=== PATIENT | female | born 1945 | race Caucasian/White ===

== ENCOUNTER 2017-02-11 12:13 | Outpatient (CLI) | payer MEDICARE, OTHER | END 2017-02-11 12:14 | disposition home or self-care (01) | DX: Z12.31 Encounter for screening mammogram for malignant neoplasm of breast (principal) ==

== ENCOUNTER 2018-03-13 16:16 | Outpatient (CLI) | payer MEDICARE, OTHER ==
--- NOTE | 2018-03-14 20:41 | Mammography Report ---
SCREENING MAMMOGRAM: 03/14/2018 CLINICAL INDICATION: A 72-year-old with history of benign biopsy for screening. COMPARISON: 01/2017, 01/2016, 12/2014, 12/2013, 12/2012, 11/2011, 11/2010. FINDINGS: The breasts again demonstrate heterogeneously dense fibroglandular parenchyma bilaterally. Postbiopsy changes in the inner right breast are stable. Coarse and punctate, typically benign calcifications are present, no suspicious masses, clustered microcalcifications, or regions of architectural distortion are identified. IMPRESSION: BENIGN FINDINGS. RECOMMENDATION: Routine annual screening unless otherwise clinically indicated. BIRADS CATEGORY - 2 BENIGN FINDINGS. STANDARD QUALIFYING STATEMENTS: 1. This examination was reviewed with the aid of Computer-Aided Detection (CAD). 2. A negative or benign imaging report should not delay biopsy if clinically suspicious findings are present. Consider surgical consultation if warranted. More than 5% of cancers are not identified by imaging. 3. Dense breasts may obscure an underlying neoplasm. TD: 03/14/2018 20:41
== END 2018-03-13 16:17 | disposition home or self-care (01) ==
LOC: DI 16:16
PROVIDERS: ATTEND Internal Medicine
DX: Z12.31 Encounter for screening mammogram for malignant neoplasm of breast (principal)
CPT/HCPCS: 77067

== ENCOUNTER 2019-04-28 13:20 | Outpatient (CLI) | payer MEDICARE, OTHER ==
--- NOTE | 2019-04-29 08:14 | Mammography Report ---
Reason: SCREENING MAMMO Procedure Date: 04/28/2019 Accession Number: [id number] / [id number] Procedure: TOMASZ - Screening Mammo w/Thomas CPT Code: FULL RESULT: EXAM: Screening Mammo w/Thomas DATE: 04/28/2019 2:05 PM CLINICAL HISTORY: Screening encounter. History of right breast excisional biopsy in 1977 with benign pathology. TECHNIQUE: (B) - Bilateral CC and MLO views were obtained. A right laterally exaggerated CC views obtained COMPARISON: 03/13/2018 through 01/15/2015. PARENCHYMAL PATTERN: (D) - The breast(s) demonstrate(s) heterogeneously dense fibroglandular parenchyma. FINDINGS: Postsurgical appearance of the right breast is stable. There are no suspicious masses, calcifications, or areas of distortion. IMPRESSION: Benign findings. BI-RADS category 2. RECOMMENDATION: (ANNUAL) - Recommend routine annual screening mammography. BI-RADS CATEGORY: (2) - Benign Findings. STANDARD QUALIFYING STATEMENTS: 1. This examination was not reviewed with the aid of Computer-Aided Detection (CAD). 2. A negative or benign imaging report should not preclude biopsy if clinically suspicious findings are present. 3. Dense breasts may obscure an underlying neoplasm. 4. This examination was reviewed with the aid of 3D breast imaging (tomosynthesis).
== END 2019-04-28 13:21 | disposition home or self-care (01) ==
LOC: DI 13:20
PROVIDERS: ATTEND Internal Medicine
DX: Z12.31 Encounter for screening mammogram for malignant neoplasm of breast (principal)
CPT/HCPCS: 77063; 77067

== ENCOUNTER 2021-07-19 10:21 | Outpatient (CLI) | payer MEDICARE, OTHER ==
--- NOTE | 2021-07-19 14:33 | XRAY Report ---
PROCEDURE: Hip w/Pelvis 2-3V LT INDICATIONS: LEFT HIP PAIN TECHNIQUE: AP pelvis with lateral view(s) of the bilateral hip(s). COMPARISON: None. FINDINGS: Bones: There are degenerative changes of the left hip joint and symphysis pubis.. No fractures or dis locations. Pelvic ring appears intact. No suspicious bony lesions. Soft tissues: The visualized bowel gas pattern is normal. No suspicious soft tissue calcifications. IMPRESSION: Degenerative changes of the left hip. No acute abnormality. Reviewed by: Max Thomas on 07/19/2021 2:31 PM PDT Approved by: Max Thomas on 07/19/2021 2:31 PM PDT Station ID: [id number]
== END 2021-07-19 10:22 | disposition home or self-care (01) ==
LOC: DI 10:21
PROVIDERS: ATTEND Internal Medicine
DX: M16.12 Unilateral primary osteoarthritis, left hip (principal)

== ENCOUNTER 2021-09-07 11:45 | Outpatient (CLI) | payer MEDICARE, OTHER ==
[2021-09-07] MEDS ORDERED: IOVERSOL 320 50 ML VIAL ONE (12:13)
[2021-09-07] MEDS ORDERED: IOVERSOL 320 100 ML VIAL IVP ONE ×2 (12:14→13:38)
[2021-09-07] MEDS ORDERED: IOVERSOL 320 50 ML VIAL PO ONE (13:38)
--- NOTE | 2021-09-07 22:47 | CT Report ---
PROCEDURE: Abdomen/Pelvis W INDICATIONS: LEFT PELVIC PAIN CONTRAST: IV CONTRAST: Optiray 320 ml: 100 PO CONTRAST: Optiray 320 ml50 TECHNIQUE: After the administration of IV and oral contrast, 5 mm thick sections acquired from the diaphragms to the symphysis. 5 mm thick coronal and sagittal reformats were acquired. For radiation dose reducti on, the following was used: automated exposure control, adjustment of mA and/or kV according to akil ent size. COMPARISON: None. FINDINGS: Image quality: Excellent. ABDOMEN: Lung bases: 3 mm subpleural right lower lobe lung nodule. Lung bases are otherwise clear. Heart siz e is enlarged. Solid organs: Liver and spleen are normal in size and enhancement. Rounded low-attenuation lesions, one with a smooth linear mural calcification in the posterior spleen. Gallbladder is normal. Biliar y system is non dilated. Pancreas enhances normally. No adrenal nodules. Kidneys demonstrate echo l size and enhancement, without hydronephrosis. Peritoneum and bowel: The descending colon is decompressed but demonstrates mild thickening extending into the sigmoid region. There is no significant pericolonic inflammation. No free fluid or air. St omach, small bowel, and proximal colon appear normal. Nodes and vessels: No retroperitoneal or mesenteric adenopathy by size criteria. Aorta and inferior vena cava are normal in size. Moderate atherosclerotic calcification. Miscellaneous: No ventral hernias. PELVIS: Genitourinary: Bladder wall thickness is normal. Anteverted uterus and normal ovaries. Miscellaneous: No inguinal hernias or adenopathy. Bones: No suspicious bony lesions. No vertebral body compression fractures. IMPRESSION: 1. Possible mild descending colitis without adjacent inflammation, fluid, or abscess. 2. No suspicious pelvic masses. Reviewed by: Catalina Concepcion MD on 09/07/2021 10:46 PM PDT Approved by: Catalina Concepcion MD on 09/07/2021 10:46 PM PDT Station ID: [id number]
== END 2021-09-07 11:46 | disposition home or self-care (01) ==
LOC: LAB 11:45 → DI 11:46
PROVIDERS: ATTEND Internal Medicine
DX: R10.2 Pelvic and perineal pain (principal); Z79.899 Other long term (current) drug therapy; R93.3 Abnormal findings on diagnostic imaging of other parts of digestive tract
CPT/HCPCS: 36415; 74177; 82565; Q9967

== ENCOUNTER 2021-10-05 11:45 | Outpatient (CLI) | payer MEDICARE, OTHER | END 2021-10-05 11:46 | disposition home or self-care (01) | LOC: LAB 11:45 | PROVIDERS: ATTEND Surgery | DX: E21.5 Disorder of parathyroid gland, unspecified (principal) | CPT/HCPCS: 36415; 83970 ==

== ENCOUNTER 2021-11-02 09:56 | Outpatient (CLI) | payer MEDICARE, OTHER ==
[2021-11-02 10:18] LABS: BASOPHILS # (AUTO) 0.1 10^3/uL (0.0-0.1); BASOPHILS % (AUTO) 0.9 %; EOSINOPHILS # (AUTO) 0.1 10^3/uL (0.0-0.7); EOSINOPHILS % (AUTO) 1.1 %; HCT - HEMATOCRIT 45.7 % (37.0-47.0); HGB - HEMOGLOBIN 14.5 g/dL (12.0-16.0); LYMPHOCYTES % (AUTO) 15.3 %; MEAN CORPUSCULAR HEMOGLOBIN 28.3 pg (27.0-31.0); MEAN CORPUSCULAR HGB CONC 31.7 g/dL (32.0-36.0); MEAN CORPUSCULAR VOLUME 89.1 fL (81.0-99.0); MEAN PLATELET VOLUME 9.8 fL (7.9-10.8); MONOCYTES # (AUTO) 0.6 10^3/uL (0.0-1.0); MONOCYTES % (AUTO) 8.8 %; NEUTROPHILS # (AUTO) 4.7 10^3/uL (1.5-6.6); NEUTROPHILS % (AUTO) 73.6 %; PLT - PLATELET COUNT 252 10^3/uL (130-450); RED BLOOD COUNT 5.13 10^6/uL (4.20-5.40); WHITE BLOOD COUNT 6.3 x10^3/uL (4.8-10.8)
[2021-11-02 10:47] LABS: ALBUMIN 4.2 g/dL (3.2-5.5); ALBUMIN/GLOBULIN RATIO 1.4 (1.0-2.2); ALKALINE PHOSPHATASE 65 IU/L (42-121); ALT ALANINE AMINOTRANSFERASE 23 IU/L (10-60); AST ASPARTATE AMINOTRANSFERASE 22 IU/L (10-42); BILIRUBIN,TOTAL 0.8 mg/dL (0.2-1.0); BUN - BLOOD UREA NITROGEN 15 mg/dL (6-20); CALCIUM 10.2 mg/dL (8.5-10.3); CARBON DIOXIDE - CO2 26 mmol/L (21-32); CHLORIDE 101 mmol/L (101-111); CHOL/HDL RATIO 2.9 (<4.4); CHOLESTEROL 167 mg/dL; CREATININE 0.9 mg/dL (0.4-1.0); GFR - MDRD 61 (>89); GLUCOSE 108 mg/dL (70-100); HDL CHOLESTEROL 58 mg/dL; LDL CHOLESTEROL,CALCULATED 96 mg/dL; LDL/HDL RATIO 1.7 (<4.4); POTASSIUM 4.2 mmol/L (3.5-5.0); SODIUM 134 mmol/L (135-145); TOTAL PROTEIN 7.3 g/dL (6.7-8.2); TRIGLYCERIDES 64 mg/dL; VLDL CHOLESTEROL 13 mg/dL
[2021-11-02 10:59] LABS: THYROID STIMULATING HORMONE 15.18 uIU/mL (0.34-5.60)
== END 2021-11-02 09:57 | disposition home or self-care (01) ==
LOC: LAB 09:56
PROVIDERS: ATTEND Internal Medicine
DX: M19.90 Unspecified osteoarthritis, unspecified site (principal); I11.9 Hypertensive heart disease without heart failure; E03.9 Hypothyroidism, unspecified; E83.52 Hypercalcemia; R60.9 Edema, unspecified; Z13.6 Encounter for screening for cardiovascular disorders; Z79.899 Other long term (current) drug therapy
CPT/HCPCS: 36415; 80053; 80061; 82607; 83721; 83880; 84443; 85025

== ENCOUNTER 2021-11-15 08:55 | Outpatient (CLI) | payer MEDICARE, OTHER ==
--- NOTE | 2021-11-15 16:20 | Nuclear Medicine Report ---
PROCEDURE: Parathyroid SPECT Imaging INDICATIONS: HYPERPARATHYROIDISM RADIOPHARMACEUTICAL: 22.7 mCi Tc-99m sestamibi IV. TECHNIQUE: After intravenous administration of Tc-99m sestamibi, anterior planar images of the neck and mediasti num were obtained at approximately 10 minutes and 2-3 hours. SPECT images were acquired after the 10 minute planar images. COMPARISON: None available. FINDINGS: On the early images, there is absence of change in thyroid gland. There is no focal incre ased activity in the right thyroid bed. The delayed images show preferential tracer retention in the inferior right thyroid bed just in parathyroid adenoma. The SPECT images demonstrate increased upta ke in the area of the inferior right thyroid bed. IMPRESSION: 1. 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 2. There is absence of uptake by thyroid gland. Recommend correlation with thyroid function tests and thyroid ultrasound if clinically indicated. Reviewed by: Hayley Arteaga MD on 11/15/2021 4:19 PM PST Approved by: Hayley Arteaga MD on 11/15/2021 4:19 PM PST Station ID: [id number]
== END 2021-11-15 08:56 | disposition home or self-care (01) ==
LOC: DI 08:55
PROVIDERS: ATTEND Surgery
DX: E21.3 Hyperparathyroidism, unspecified (principal); D35.1 Benign neoplasm of parathyroid gland
CPT/HCPCS: 78070

== ENCOUNTER 2021-12-13 07:28 | Day surgery (SDC) | payer MEDICARE, OTHER ==
[2021-12-13] MEDS ORDERED: LACTATED RINGERS 1,000 ML IV ONE (07:39)
--- NOTE | 2021-12-13 08:42 | ANESTHESIA ---
Pre-Anesthesia VS, & Labs - Diagnosis screening exam - Procedure colonoscopy Vital Signs: Temp Pulse Resp BP Pulse Ox 36.5 C 81 16 188/102 H 100 12/13/21 07:30 12/13/21 07:30 12/13/21 07:30 12/13/21 07:30 12/13/21 07:30 Height: 5 ft 8 in Weight (kg): 57 kg Body Mass Index: 19.1 BMI Classification: Healthy weight - NPO >8 hours - Is Patient ?: No Home Medications and Allergies Home Medications: Ambulatory Orders Levothyroxine Sodium [Synthroid] 1 tab DAILY 12/12/21 Losartan [Cozaar] 1 tab BID 12/12/21 amLODIPine [Norvasc] 1 tab DAILY 12/12/21 atenoloL [Tenormin] 1 tab BID 12/12/21 buPROPion HCL [Bupropion HCl Sr] 1 tab BID 12/12/21 Levothyroxine Sodium [Synthroid] 1 tab DAILY 12/12/21 Losartan [Cozaar] 1 tab BID 12/12/21 amLODIPine [Norvasc] 1 tab DAILY 12/12/21 atenoloL [Tenormin] 1 tab BID 12/12/21 buPROPion HCL [Bupropion HCl Sr] 1 tab BID 12/12/21 Allergies/Adverse Reactions: Allergies Allergy/AdvReac Type Severity Reaction Status Date / Time codeine AdvReac Nausea Verified 12/13/21 07:49 Anes History & Medical History - Anesthetic History Anesthesia Complications: reports: Post-Operative Nausea/Vomiting - Medical History Cardiovascular: reports: Hypertension, High cholesterol, Valve disorder (MVP, 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) Pulmonary: reports: None Gastrointestinal: reports: Colon polyps Urinary: reports: None Neuro: reports: None Musculoskeletal: reports: Osteoporosis Endocrine/Autoimmune: reports: HyPOthyroidism (tsh 15) Blood Disorders: reports: None Skin: reports: None Smoking Status: Never smoker Psychosocial: reports: Depression History of Cancer?: No - Surgical History General: reports: Appendectomy, Colonoscopy Exam General: Alert, Oriented x3, Cooperative, No acute distress Dental: WNL Mouth Openin Fingerbreadth Neck Mobility: Normal Mallampati classification: I Thyromental Distance: 4-6 cm Mental/Cognitive Status: Alert/Oriented X3, Normal for patient Plan Anesthesia Type: General, Total IV Consent for Procedure(s) Verified and Reviewed: Yes Code Status: Attempt Resuscitation ASA classification: 2-Mild systemic disease Is this case an emergency?: No
[2021-12-13] MEDS ORDERED: PROPOFOL 500 MG/50 ML 500 MG/50 ML VIAL ONE (08:55)
[2021-12-13] MEDS ORDERED: LACTATED RINGERS 500 ML IV ONE (10:08)
[2021-12-13 10:25] VITALS: BP 142/81
--- NOTE | 2021-12-13 13:09 | ANESTHESIA POST OP EVALUATION ---
Anesthesia Post Eval - Post Anesthesia Eval Vitals: Last Vital Signs Temp 36.6 C 12/13/21 10:24 Pulse 60 12/13/21 10:24 Resp 15 12/13/21 10:24 BP 142/81 H 12/13/21 10:24 Pulse Ox 100 12/13/21 10:24 CV Function Including HR & BP: Stable Pain Control: Satisfactory Nausea & Vomiting: Negative Mental Status: Baseline Respiratory Status: Airway Patent Hydration Status: Satisfactory Anesthesia Complications: None
== END 2021-12-13 07:29 | disposition home or self-care (01) ==
LOC: SDS 07:28
PROVIDERS: ATTEND Surgery
PROC: 3E0H8KZ Introduction of Other Diagnostic Substance into Lower GI, Via Natural or Artificial Opening Endoscopic (ICD-10-PCS; 2021-12-13)
PROC: 0DBK8ZX Excision of Ascending Colon, Via Natural or Artificial Opening Endoscopic, Diagnostic (ICD-10-PCS; principal; 2021-12-13 08:30)
DX: Z12.11 Encounter for screening for malignant neoplasm of colon (principal); C18.2 Malignant neoplasm of ascending colon; E21.3 Hyperparathyroidism, unspecified; K64.8 Other hemorrhoids; Z86.010 Personal history of colon polyps; F32.A Depression, unspecified
CPT/HCPCS: 45381; 45385; J7120

== ENCOUNTER 2021-12-18 10:34 | Outpatient (CLI) | payer MEDICARE, OTHER ==
--- NOTE | 2021-12-19 08:52 | Mammography Report ---
BILATERAL DIGITAL SCREENING MAMMOGRAM 3D/2D: 12/18/2021 CLINICAL: Routine screening. Comparison is made to exams dated: 04/28/2019 mammogram, 03/13/2018 mammogram, and 02/11/2017 mammogram - [facility]. The tissue of both breasts is heterogeneously dense. This may lower the sensitivity of mammography. There are benign post operative findings in the right breast. No significant masses, calcifications, or other findings are seen in either breast. There has been no significant interval change. IMPRESSION: BENIGN There is no mammographic evidence of malignancy. A 1 year screening mammogram is recommended. This exam was interpreted at Station ID: [id number]. NOTE: For mammograms, a report in lay terms will be sent to the patient. Approximately 15% of breast malignancies will not be visualized mammographically. In the management of a palpable breast mass, a negative mammogram must not discourage biopsy of a clinically suspicious lesion. Electronically Signed By: Mac miller/roshan:12/18/2021 15:34:07 ACR BI-RADS Category 2: Benign Finding(s) 3342F PARENCHYMAL PATTERN: (D) - The breast(s) demonstrate(s) heterogeneously dense fibroglandular karon herron. BI-RADS CATEGORY: (2) - 2 RECOMMENDATION: (ANNUAL) - Recommend routine annual screening mammography. [id number] 1 year screening LATERALITY: (B)
== END 2021-12-18 10:35 | disposition home or self-care (01) ==
LOC: DI.N 10:34
PROVIDERS: ATTEND Internal Medicine
DX: Z12.31 Encounter for screening mammogram for malignant neoplasm of breast (principal); E02 Subclinical iodine-deficiency hypothyroidism
CPT/HCPCS: 36415; 84443

== ENCOUNTER 2022-01-01 08:12 | Outpatient (CLI) | payer MEDICARE, OTHER ==
[2022-01-01] MEDS ORDERED: IOPAMIDOL-300 50 ML VIAL ONE (08:23)
[2022-01-01] MEDS ORDERED: IOVERSOL 320 100 ML VIAL IVP ONE ×2 (08:23→09:39)
[2022-01-01 08:43] LABS: CREATININE 0.9 mg/dL (0.4-1.0)
[2022-01-01] MEDS ORDERED: IOPAMIDOL-300 50 ML VIAL PO ONE (09:39)
--- NOTE | 2022-01-01 11:22 | CT Report ---
PROCEDURE: Abdomen/Pelvis W INDICATIONS: COLON CA CONTRAST: IV CONTRAST: Optiray 320 ml: 100 PO CONTRAST: Isovue 300 ml50 TECHNIQUE: After the administration of oral and intravenous contrast, 5 mm thick sections acquired from the diap hragms to the symphysis. 5 mm thick coronal and sagittal reformats were acquired. For radiation dos e reduction, the following was used: automated exposure control, adjustment of mA and/or kV accordin g to patient size. COMPARISON: 09/07/2021,. FINDINGS: Image quality: Excellent. ABDOMEN: Lung bases: A small 0.3 cm nodule within the right lower lobe on series 4 image 9 appears stable in s ize compared to the 2 prior study. There is mild linear scarring in the lung bases. Heart size is bor derline enlarged. There is a small hiatal hernia. Solid organs: Within segment 8 of the right hepatic dome, there is a small subdiaphragmatic hypodens ity measuring up to 0.4 cm on series 3 image 14 which is too small to characterize. The finding is ne w or is seen to greater advantage on the current exam. Gallbladder appears within normal limits witho ut calcified gallstones. Biliary system is non dilated. Pancreas enhances normally. No discrete adre nal nodules. There is thickening of the adrenal glands which appear similar to the prior study. The k idneys demonstrate no hydronephrosis. There are clustered hypodense lesions measuring up to 1.6 cm po steriorly within the spleen which are indeterminate but are similar in appearance compared to the avery or study. Peritoneum and bowel: Small bowel loops demonstrate normal wall thickness and caliber. No evidence of acute appendicitis. The descending and proximal sigmoid colon are nondistended with suggestion of mi ld segmental wall thickening versus artifact from nondistention. No discrete mass lesion identified. No free fluid or air. Nodes and vessels: No retroperitoneal or mesenteric adenopathy by size criteria. Aorta and inferior vena cava are normal in size. Miscellaneous: No ventral hernias. PELVIS: Genitourinary: Bladder wall thickness is normal. Miscellaneous: No inguinal hernias or adenopathy. Bones: No suspicious bony lesions. No vertebral body compression fractures. IMPRESSION: 1. Small hypodense focus in the right hepatic dome is too small to characterize. The finding statisti iftikhar likely represents a cyst but is new or seen to greater advantage compared to the prior study. A follow study may be performed to demonstrate stability in 3-6 months. 2. Clustered oval hypodense lesions posteriorly within the spleen are indeterminate. The findings may represent cysts or hemangiomas but attention is recommended on follow-up to demonstrate stability. 3. Small right lower lobe indeterminate pulmonary nodule. Recommend attention on follow-up. 4. Mild wall thickening within the descending and proximal sigmoid colon may reflect artifact from no ndistention versus a mild nonspecific colitis. No discrete bowel mass identified. Reviewed by: Robert Sanders MD on 01/01/2022 11:21 AM PST Approved by: Robert Sanders MD on 01/01/2022 11:21 AM PST Station ID: [id number]
== END 2022-01-01 08:13 | disposition home or self-care (01) ==
LOC: DI 08:12
PROVIDERS: ATTEND Surgery
DX: C18.2 Malignant neoplasm of ascending colon (principal); D73.89 Other diseases of spleen; R91.1 Solitary pulmonary nodule
CPT/HCPCS: 36415; 74177; 82565; Q9967

== ENCOUNTER 2022-01-26 06:27 | Inpatient (IN) | payer MEDICARE, OTHER ==
[2022-01-26] MEDS ORDERED: LACTATED RINGERS 1,000 ML IV ONE (06:43)
[2022-01-26] MEDS ORDERED: ROCURONIUM 50 MG/5 ML VIAL ONE (07:16)
[2022-01-26] MEDS ORDERED: PROPOFOL 200 MG/20 ML VIAL IVP ONE (07:16)
[2022-01-26] MEDS ORDERED: LIDOCAINE-MPF 2% 5 ML VIAL ONE (07:16)
[2022-01-26] MEDS ORDERED: MIDAZOLAM 2 MG/2 ML VIAL ONE (07:16)
[2022-01-26] MEDS ORDERED: fentaNYL 100 MCG/2 ML VIAL ONE (07:17)
[2022-01-26] MEDS ORDERED: SCOPOLAMINE PATCH TOP ONE (07:28)
--- NOTE | 2022-01-26 07:46 | ANESTHESIA ---
Pre-Anesthesia VS, & Labs - Diagnosis colon CA - Procedure Laproscopic right hemicolectomy, possible open Vital Signs: Temp Pulse Resp BP Pulse Ox 36.8 C 82 16 157/92 H 100 01/26/22 06:42 01/26/22 06:42 01/26/22 06:42 01/26/22 06:42 01/26/22 06:42 Height: 5 ft 8 in Weight (kg): 56.7 kg Body Mass Index: 19.0 BMI Classification: Healthy weight - NPO >8 hours - Is Patient ?: No Home Medications and Allergies Active Medications Cefotetan Disodium 2 gm/ (Sodium Chloride) 100 mls @ 200 mls/hr IV ONCE ONE Stop: 01/26/22 08:29 Levothyroxine Sodium [Synthroid] 175 mcg PO DAILY 12/12/21 Losartan [Cozaar] 50 mg PO BID 12/12/21 amLODIPine [Norvasc] 5 mg PO DAILY 12/12/21 atenoloL [Tenormin] 25 mg PO BID 12/12/21 buPROPion HCL [Bupropion HCl Sr] 150 mg PO BID 12/12/21 Allergies/Adverse Reactions: Allergies Allergy/AdvReac Type Severity Reaction Status Date / Time codeine AdvReac Nausea Verified 12/13/21 07:49 fluoxetine AdvReac Unknown Verified 01/26/22 06:19 venlafaxine AdvReac Unknown Verified 01/26/22 06:19 Anes History & Medical History - Anesthetic History Anesthesia Complications: reports: Post-Operative Nausea/Vomiting, Opioid sensitivity Family history of Anesthesia Complications: Denies Family history of Malignant Hyperthermia: Denies - Medical History Cardiovascular: reports: Hypertension, High cholesterol, Valve disorder Pulmonary: reports: None Gastrointestinal: reports: Hiatal hernia Urinary: reports: None Neuro: reports: None Endocrine/Autoimmune: reports: HyPOthyroidism Blood Disorders: reports: None Smoking Status: Never smoker Other Past Medical History: 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 - Surgical History General: reports: Appendectomy, Other Dermatologic: reports: Skin cancer surgery Exam General: Alert, Oriented x3, Cooperative Dental: WNL, Other (moderately large miley on upper palate) Mouth Openin Fingerbreadth Neck Mobility: Normal Mallampati classification: I Thyromental Distance: 4-6 cm Respiratory: Lungs clear Cardiovascular: Regular rate Plan Anesthesia Type: General, Transverse Abdominis Plane (TAP) Block Regional Block: Per Surgeon's request for Post Op pain control Consent for Procedure(s) Verified and Reviewed: Yes Code Status: Attempt Resuscitation ASA classification: 3-Severe systemic disease Is this case an emergency?: No
[2022-01-26] MEDS ORDERED: NALOXONE 0.4 MG/ML VIAL IVP PRN (07:47)
[2022-01-26] MEDS ORDERED: ONDANSETRON 4 MG/2 ML VIAL IVP PRN ×2 (07:47→10:39)
[2022-01-26] MEDS ORDERED: MORPHINE 2 MG/ML CARPUJECT IVP PRN ×2 (07:47→11:13)
[2022-01-26] MEDS ORDERED: HYDROmorphone 0.5 MG/0.5 ML SYRINGE IVP PRN (07:47)
[2022-01-26] MEDS ORDERED: fentaNYL 100 MCG/2 ML VIAL IVP PRN (07:47)
[2022-01-26] MEDS ORDERED: ATROPINE ABBOJECT 1 MG/10 ML SYRINGE IVP PRN (07:47)
[2022-01-26] MEDS ORDERED: ePHEDrine 50 MG/ML VIAL IVP PRN (07:47)
[2022-01-26] MEDS ORDERED: CEFOTETAN DISODIUM 2 GM in SODIUM CHLORIDE 0.9% MINIBAG 100 ML IV ONE (08:00)
[2022-01-26] MEDS ORDERED: LACTATED RINGERS 1,000 ML IV SCH (08:00)
[2022-01-26] MEDS ORDERED: ePHEDrine 50 MG/ML VIAL IVP ONE (08:14)
[2022-01-26] MEDS ORDERED: ACETAMINOPHEN 1,000 MG/100 ML 100 ML IV ONE (08:16)
[2022-01-26] MEDS ORDERED: SUGAMMADEX 200 MG/2 ML VIAL IVP ONE (09:47)
[2022-01-26] MEDS ORDERED: DEXAMETHASONE 4 MG/ML VIAL ONE (09:59)
[2022-01-26] MEDS ORDERED: ONDANSETRON 4 MG/2 ML VIAL ONE (09:59)
[2022-01-26] MEDS ORDERED: LACTATED RINGERS 900 ML IV ONE (10:09)
[2022-01-26] MEDS ORDERED: KETOROLAC 15 MG/ML VIAL IVP PRN (10:14)
--- NOTE | 2022-01-26 10:15 | OPERATIVE REPORT ---
Operative Report - General Admit Date: 01/26/22 Procedure Date: 01/26/22 Planned Procedure: Laparoscopic right hemicolectomy Pre-Op Diagnosis: Ascending colon cancer Procedure Performed: Laparoscopic right hemicolectomy Post Op Diagnosis: Same - Procedure Note Primary Surgeon: Dez Christina MD Secondary Surgeon: Lorelei Plasencia MD Anesthesia Provider: Danay Aden CRNA Anesthesia Technique: General ET tube, Regional block IV Fluids (mL): 1,100 Estimated Blood Loss (mL): 2 Urine Output (mL): 275 Drain/Tube Type: Other (None) Indications: Cancer within a polyp that could not be completely removed endoscopically Findings: See report Complications: None. - Other Other Information/Narrative: After verbal and written informed consent was obtained detailing the operation, the alternatives to the operation including no operation, risks of infection, bleeding requiring transfusion with its risks, nerve injury, and and after I met with the patient confirming the surgery, the patient was brought to the operative suite and placed supine on the operating table. Great care was taken to avoid pressure points to prevent pressure necrosis or nerve injury. Monitoring devices were applied along with TEDs and pneumatic compressive stockings (to prevent DVT). The patient received preoperative antibiotics for surgical prophylaxis. Danay Aden CRNA sedated and anesthetized the patient for the entire procedure. A JIMENA block was placed. The patient was prepped and draped in usual sterile manner. A "time in" then confirmed that the patient was identified with 3 identifiers (name, date, and medical record number), the history and physical was in the chart, the signed consent confirming the procedure was in the chart, the patient was in the correct position, the aforementioned prophylactic measures were in place were given, we had the cor rect personnel and equipment to complete the procedure and that anesthesia, and the surgical team was given an opportunity to express any concerns. With the agreement of everyone in the room, we proceeded with the operation. I incised the skin just above and just to the right of the umbilicus and I dissected down to the anterior fascia using Bovie electrocautery. The anterior fascia was incised using Bovie electrocautery. The rectus muscle was moved to the side and the posterior fascia as well as the peritoneum were incised gaining entry into the abdomen without incident. A SILS port was then placed into this incision. This port and three 5 mm trochars placed into it and abdominal cavity was insufflated with carbon dioxide to a steady-state pressure of 12 mmHg. An additional 5 mm port was placed in the left lower quadrant under direct vision of a 30 degree 5 mm scope without incident. Examination of the patient's abdomen showed a highly mobile right colon with the tattoo shantanu clearly and easily identified. The patient was then placed in reverse Trendelenburg position and rotated left side down to aid in visualization. The colons highly mobile state allowed for the transverse colon as well as the area with the tumor to be brought up through the SILS port site but additional adhesions had to be taken down to ensure that the terminal ileum could similarly be brought up. Adhesions primarily at the of the colon to the lateral wall at the level of the liver and just slightly below were taken using serial application of the LigaSure. In this manner I was able to fully mobilize the terminal ileum as well as the right colon and the proximal transverse colon to the midline. Once I was able to guarantee the mobilization of the colon the insufflation was stopped and the SILS port was removed leaving the protective sleeve in place. The patient was placed flat. The terminal ileum through the transverse colon were brought up through this incision. The mesentery was scored using Bovie electrocautery and the right colic vessels were out at the base and individually tied using 0 silk suture. Distally they were transected using application of the LigaSure. The remaining mesentery was taken using serial application of the LigaSure from the terminal ileum all the way to the right side of the middle colic artery. The middle colic artery was left intact. There were clearly lymph nodes in that had ink from the tattoo and every attempt was made to get all of these lymph nodes. Once the proximal and distal resection margins were decided a pursestring global marketing coordinator was placed across the terminal ileum and a 3-0 Prolene on a Jeromy needle was used to form the pursestring. Distally a Kassi was used to prevent any spillage. The terminal ileum was transected and the pursestring global marketing coordinator removed. The anvil of a 25 EEA stapler was then placed into this opening and the pursestring was tied around the post. A Kassi was then placed across the proximal transverse colon again to prevent spillage. A small colotomy was made distal to this using Bovie electrocautery and through this was introduced the EEA stapler and the spike was brought out anteriorly along the tenia. Over the spike was placed the post to the anvil and the stapler was closed and fired thus creating the ileocolostomy. The stapler was removed and the post was checked and was noted to have 2 complete "donuts." The colon just distal to the colotomy was transected using an application of a 75 PRETTY stapler. The specimen was then delivered from the operative field. The specimen and the "donuts" were sent for pathologic evaluation. Both stapled closures were oversewn using 3-0 Vicryl in a Lembert fashion.The mesenteric defect which was large was not closed. The anastomosis was noted to be open using my fingers and was pink and was then dropped back into the abdomen. The sleeve of the SILS port was removed. The posterior fascia was then closed using a running 2-0 PDS. The rectus muscles were allowed to fall back into position. The anterior fascia was also closed using a running 2-0 PDS. The skin at each port site was approximated using a subcuticular 4-0 Monocryl. The incisions had Dermabond applied. At this point a "timeout" was performed that confirmed that all counts were correct, the procedure that was performed, the blood loss, the IV fluids administered, the patient's condition and any concerns of the operating team had. Dressings were then applied. Having tolerated the procedure well, the patient was extubated and taken to recovery room in good and stable condition. At the request of the patient I immediately spoke with her and explained the operative findings, her condition, and her expected hospital course. This document was created in part using voice recognition technology. Because of the inherent limitations of the system, occasional same sounding word substitutions and grammatical errors do occur and persist despite proofreading. Please read this document for context.
[2022-01-26] MEDS ORDERED: KETOROLAC 15 MG/ML VIAL ONE (10:29)
[2022-01-26] MEDS ORDERED: HYDROmorphone 0.5 MG/0.5 ML SYRINGE ONE (10:40)
--- NOTE | 2022-01-26 10:46 | PHARMACY PROGRESS NOTE ---
- Best Possible Medication History Admit Date and Time: 01/26/22 0627 Processed by: Nursing Medication History completed: Yes As the person ultimately responsible for medication therapy, providers are able to order a medication from an existing home medication list in [facility] via the "Reconcile Routine" prior to Confirmation of that medication by production support consultant. Such practice is discouraged except when the physician, in their clinical judgment, deems that a medical need exists for a medication without regard to previous use.
--- NOTE | 2022-01-26 10:47 | ANESTHESIA POST OP EVALUATION ---
Anesthesia Post Eval - Post Anesthesia Eval Vitals: Last Vital Signs Temp 36.8 C 01/26/22 10:35 Pulse 62 01/26/22 10:35 Resp 10 L 01/26/22 10:35 BP 147/72 H 01/26/22 10:35 Pulse Ox 100 01/26/22 10:35 CV Function Including HR & BP: Stable Pain Control: Satisfactory Nausea & Vomiting: Negative Mental Status: Baseline Respiratory Status: Airway Patent Hydration Status: Satisfactory Anesthesia Complications: None
[2022-01-26] MEDS: KETOROLAC 15 MG/ML VIAL IVP SCH ×3 (11:36→23:08)
[2022-01-26] MEDS: LACTATED RINGERS 1,000 ML IV SCH (11:37)
[2022-01-26] MEDS: SCOPOLAMINE PATCH TOP SCH (11:38)
[2022-01-26] MEDS ORDERED: IBUPROFEN 600 MG TABLET PO SCH (12:00)
[2022-01-26] MEDS: ACETAMINOPHEN 325 MG TABLET PO SCH ×3 (14:09→20:33)
[2022-01-27] MEDS: ACETAMINOPHEN 325 MG TABLET PO SCH ×6 (02:38→20:31)
[2022-01-27] MEDS: KETOROLAC 15 MG/ML VIAL IVP SCH (05:02)
[2022-01-27 05:21] LABS: BASOPHILS % (AUTO) 0.2 %; EOSINOPHILS # (AUTO) 0.2 10^3/uL (0.0-0.7); EOSINOPHILS % (AUTO) 1.9 %; HCT - HEMATOCRIT 27.3 % (37.0-47.0); LYMPHOCYTES # (AUTO) 0.7 10^3/uL (1.5-3.5); LYMPHOCYTES % (AUTO) 6.4 %; MEAN CORPUSCULAR HEMOGLOBIN 28.6 pg (27.0-31.0); MEAN CORPUSCULAR VOLUME 86.7 fL (81.0-99.0); MEAN PLATELET VOLUME 10.1 fL (7.9-10.8); MONOCYTES % (AUTO) 8.3 %; NEUTROPHILS # (AUTO) 9.4 10^3/uL (1.5-6.6); NEUTROPHILS % (AUTO) 82.2 %; PLT - PLATELET COUNT 194 10^3/uL (130-450); RED BLOOD COUNT 3.15 10^6/uL (4.20-5.40); WHITE BLOOD COUNT 11.4 x10^3/uL (4.8-10.8)
[2022-01-27] MEDS: PANTOPRAZOLE 40 MG VIAL IVP SCH (06:22)
[2022-01-27] MEDS: LACTATED RINGERS 1,000 ML IV SCH (07:45)
--- NOTE | 2022-01-27 07:54 | PROVIDER PROGRESS NOTE ---
Subjective - General Admit Date: 01/26/22 Procedure Date: 01/26/22 Post Op Days: 1 Procedure Performed: Laparoscopic RIGHT hemicolectomy - Review of Systems Wound/Incisions: positive: Healing well, No drainage General: positive: Weakness HEENT: positive: No symptoms Pulmonary: positive: No symptoms Cardiovascular: positive: No symptoms Gastrointestinal: positive: Hematochezia Genitourinary: positive: Retention (Treated with straight cath.) Skin: positive: No symptoms Psychiatric: positive: No symptoms Objective - Patient Data Reviewed Vital Signs: Yes Vital Signs: Vital Signs x48h Temp Pulse Resp BP Pulse Ox 01/27/22 06:22 36.5 C 55 L 12 121/55 L 98 01/27/22 04:09 36.7 C 53 L 16 146/62 H 98 Weight: Weight 01/25/22 01/26/22 01/27/22 23:59 23:59 23:59 Weight (kg) 56.7 kg Intake & Output: Intake and Output Totals x24h 01/25/22 01/26/22 01/27/22 23:59 23:59 23:59 Intake Total 2280 1850 Output Total 1127 1575 Balance 1153 275 - Lab Results Lab Results: 01/27/22 12:02 Other Lab Results: Lab Results x24hrs 01/27/22 01/26/22 01/26/22 Range/Units 05:10 16:48 12:33 WBC 11.4 H (4.8-10.8) x10^3/uL RBC 3.15 L (4.20-5.40) 10^6/uL Hgb 9.0 L (12.0-16.0) g/dL Hct 27.3 L (37.0-47.0) % MCV 86.7 (81.0-99.0) fL MCH 28.6 (27.0-31.0) pg MCHC 33.0 (32.0-36.0) g/dL RDW 13.0 (12.0-15.0) % Plt Count 194 (130-450) 10^3/uL MPV 10.1 (7.9-10.8) fL Neut # (Auto) 9.4 H (1.5-6.6) 10^3/uL Lymph # (Auto) 0.7 L (1.5-3.5) 10^3/uL [place] # (Auto) 1.0 (0.0-1.0) 10^3/uL Eos # (Auto) 0.2 (0.0-0.7) 10^3/uL Baso # (Auto) 0.0 (0.0-0.1) 10^3/uL Absolute Nucleated RBC 0.00 x10^3/uL Nucleated RBC % 0.0 /100WBC POC Whole Bld Glucose 138 H 124 H (70 - 100) mg/dL - Current Medications Current Medications: Current Medications Generic Name Dose Route Start Last Admin Trade Name Freq PRN Reason Stop Dose Admin Acetaminophen 650 mg 01/26/22 13:00 01/27/22 05:01 Acetaminophen 325 Mg Tablet PO Not Given Q4HR CARI Lactated Ringer's 1,000 mls @ 50 mls/hr 01/26/22 11:00 01/27/22 07:45 Lr IV 50 mls/hr .Q20H CARI Administration Pantoprazole Sodium 40 mg 01/27/22 07:00 01/27/22 06:22 Pantoprazole 40 Mg Vial IVP 40 mg QDAC CARI Administration Scopolamine HBr 1 patch 01/26/22 08:00 01/26/22 11:38 Scopolamine Patch TOP Not Given Q3D CARI - Physical Exam Wound/Incisions: positive: Healing well, No drainage General Appearance: positive: No acute distress ENT: positive: Dry mucous membranes Neck: positive: Trachea midline Respiratory: positive: Chest non-tender, No respiratory distress, Breath sounds nml Cardiovascular: positive: Regular rate & rhythm, No murmur, No gallop Rectal: positive: Non-tender, Bloody stool Skin: positive: Pallor Extremities: positive: Non-tender, Nml appearance, No pedal edema. negative: Calf tenderness Neurologic/Psychiatric: positive: Oriented x3 ABX Reporting Has patient been on IV antibiotics over the past 48 hours?: Yes Impression/Plan - Problem List Problem List: D1 s/p laparoscopic RIGHT hemicolectomy for ascending colon cancer Patient has an intracolonic bleed that has dropped her Hgb from 14 to 9 and now to 7. Patient is feeling dizzy and there has not been any indication that this surgical bleed is stopping. I will infuse transexamic acid in an effort to stop the bleeding and transfuse 2 units PRBCs as it is very clear that this is an ONGOING bleed. If this was NOT ongoing I would transfuse 1 unit and check to see if the patient remained symptomatic - this is NOT the case here. I will recheck the patient throughout the transfusion to ensure that she does not increase the rate of bleeding. I am considering colonoscopy to look at the anastamotic site but this carries risk of anastamotic disruption at the anastamosis is just over 24 hours old and the hospital is currently not staffed to perform said colonoscopy so I will press a medical answer. Urinary retention treated with straight cath and repeat bladder scan as indicated. Patient has not been ambulatory (per [facility] protocol) due to her dizziness and weakness (secondary to blood loss anemia). Tolerating po well. Pain controlled.
[2022-01-27] MEDS: polyethylene glycoL 3350 17 GM PACKET PO SCH (08:29)
[2022-01-27] MEDS: IBUPROFEN 600 MG TABLET PO SCH ×2 (12:00→17:27)
[2022-01-27 12:16] LABS: HCT - HEMATOCRIT 23.8 % (37.0-47.0); HGB - HEMOGLOBIN 7.8 g/dL (12.0-16.0); MEAN CORPUSCULAR HEMOGLOBIN 28.4 pg (27.0-31.0); MEAN CORPUSCULAR HGB CONC 32.8 g/dL (32.0-36.0); MEAN CORPUSCULAR VOLUME 86.5 fL (81.0-99.0); MEAN PLATELET VOLUME 9.9 fL (7.9-10.8); RED BLOOD COUNT 2.75 10^6/uL (4.20-5.40); RED CELL DISTRIBUTION WIDTH 13.2 % (12.0-15.0); WHITE BLOOD COUNT 11.6 x10^3/uL (4.8-10.8)
[2022-01-27] MEDS ORDERED: TRANEXAMIC ACID IN NACL 1,000 MG/100 ML BAG IV STA (13:41)
[2022-01-27 23:49] LABS: HCT - HEMATOCRIT 29.7 % (37.0-47.0); HGB - HEMOGLOBIN 10.2 g/dL (12.0-16.0); MEAN CORPUSCULAR HEMOGLOBIN 29.5 pg (27.0-31.0); MEAN CORPUSCULAR HGB CONC 34.3 g/dL (32.0-36.0); MEAN CORPUSCULAR VOLUME 85.8 fL (81.0-99.0); MEAN PLATELET VOLUME 10.2 fL (7.9-10.8); RED BLOOD COUNT 3.46 10^6/uL (4.20-5.40); RED CELL DISTRIBUTION WIDTH 13.2 % (12.0-15.0); WHITE BLOOD COUNT 6.4 x10^3/uL (4.8-10.8)
[2022-01-28] MEDS: IBUPROFEN 600 MG TABLET PO SCH ×4 (01:10→17:11)
[2022-01-28] MEDS: ACETAMINOPHEN 325 MG TABLET PO SCH ×5 (01:10→20:03)
[2022-01-28] MEDS: PANTOPRAZOLE 40 MG VIAL IVP SCH (06:20)
[2022-01-28] MEDS: LACTATED RINGERS 1,000 ML IV SCH ×2 (06:23→20:37)
[2022-01-28] MEDS ORDERED: LEVOTHYROXINE 100 MCG TABLET PO SCH (07:00)
[2022-01-28] MEDS ORDERED: LEVOTHYROXINE 75 MCG TABLET PO SCH (07:00)
[2022-01-28] MEDS: polyethylene glycoL 3350 17 GM PACKET PO SCH (08:29)
--- NOTE | 2022-01-28 10:32 | PROVIDER PROGRESS NOTE ---
Subjective - General Admit Date: 01/26/22 Procedure Date: 01/26/22 Post Op Days: 2 Procedure Performed: Laparoscopic RIGHT hemicolectomy - Review of Systems Wound/Incisions: positive: Healing well, No drainage General: positive: Weakness HEENT: positive: No symptoms Pulmonary: positive: No symptoms Cardiovascular: positive: No symptoms Gastrointestinal: positive: No symptoms. negative: Nausea, Vomiting Musculoskeletal: positive: No symptoms Skin: positive: No symptoms Psychiatric: positive: No symptoms Objective - Patient Data Reviewed Vital Signs: Yes Vital Signs: Vital Signs x48h Temp Pulse Resp BP BP Pulse Ox 01/28/22 08:28 83 15 133/72 H 99 01/28/22 08:06 37.5 C 70 16 164/75 H 180/77 H 100 01/28/22 06:10 37.1 C 76 18 142/82 H 97 Weight: Weight 01/26/22 01/27/22 01/28/22 23:59 23:59 23:59 Weight (kg) 56.7 kg Intake & Output: Intake and Output Totals x24h 01/26/22 01/27/22 01/28/22 23:59 23:59 23:59 Intake Total 2280 4317.5 1506.5 Output Total 1127 3450 2750 Balance 1153 867.5 -1243.5 - Lab Results Lab Results: 01/27/22 23:42 Other Lab Results: Lab Results x24hrs 01/27/22 01/27/22 01/27/22 Range/Units 23:42 12:02 08:11 WBC 6.4 11.6 H (4.8-10.8) x10^3/uL RBC 3.46 L 2.75 L (4.20-5.40) 10^6/uL Hgb 10.2 L 7.8 L (12.0-16.0) g/dL Hct 29.7 L 23.8 L (37.0-47.0) % MCV 85.8 86.5 (81.0-99.0) fL MCH 29.5 28.4 (27.0-31.0) pg MCHC 34.3 32.8 (32.0-36.0) g/dL RDW 13.2 13.2 (12.0-15.0) % Plt Count 147 186 (130-450) 10^3/uL MPV 10.2 9.9 (7.9-10.8) fL Blood Type B POSITIVE Blood Type Recheck Antibody Screen NEGATIVE Crossmatch IS Only See Detail 01/27/22 Range/Units 05:10 WBC (4.8-10.8) x10^3/uL RBC (4.20-5.40) 10^6/uL Hgb (12.0-16.0) g/dL Hct (37.0-47.0) % MCV (81.0-99.0) fL MCH (27.0-31.0) pg MCHC (32.0-36.0) g/dL RDW (12.0-15.0) % Plt Count (130-450) 10^3/uL MPV (7.9-10.8) fL Blood Type Blood Type Recheck B POSITIVE Antibody Screen Crossmatch IS Only - Current Medications Current Medications: Current Medications Generic Name Dose Route Start Last Admin Trade Name Freq PRN Reason Stop Dose Admin Acetaminophen 650 mg 01/26/22 13:00 01/28/22 08:29 Acetaminophen 325 Mg Tablet PO 650 mg Q4HR CARI Administration Lactated Ringer's 1,000 mls @ 50 mls/hr 01/26/22 11:00 01/28/22 09:52 Lr IV Infused .Q20H CARI Infusion Ibuprofen 600 mg 01/27/22 12:00 01/28/22 06:21 Ibuprofen 600 Mg Tablet PO 600 mg Q6HR CARI Administration Pantoprazole Sodium 40 mg 01/27/22 07:00 01/28/22 06:20 Pantoprazole 40 Mg Vial IVP 40 mg QDAC CARI Administration Polyethylene Glycol 17 gm 01/27/22 09:00 01/28/22 08:29 Polyethylene Glycol 3350 17 Gm Packet PO 17 gm DAILY CARI Administration Scopolamine HBr 1 patch 01/26/22 08:00 01/26/22 11:38 Scopolamine Patch TOP Not Given Q3D CARI - Physical Exam Wound/Incisions: positive: Healing well, No drainage General Appearance: positive: No acute distress Eyes Bilateral: positive: No scleral icterus ENT: positive: No signs of dehydration Neck: positive: Trachea midline, Other (Well healed incision) Respiratory: positive: Chest non-tender Cardiovascular: positive: Regular rate & rhythm Abdomen: positive: Non-tender, Nml bowel sounds Skin: positive: Color nml Extremities: positive: Non-tender, Nml appearance Neurologic/Psychiatric: positive: Oriented x3 ABX Reporting Has patient been on IV antibiotics over the past 48 hours?: No Impression/Plan - Problem List Problem List: D2 s/p laparoscopic RIGHT hemicolectomy for ascending colon cancer Patient's bleeding seems to have stopped with tranexamic acid and her H&H appear s stabilized. Recheck tomorrow. Now that patient's symptoms have improved and it is safer ambulate today. Shower today. General diet. Tolerating po well. Pain controlled.
[2022-01-28] MEDS: buPROPion XL 150 MG TABLET PO SCH (10:44)
[2022-01-28] MEDS: atenoloL 25 MG TABLET PO SCH (10:45)
[2022-01-28] MEDS: LOSARTAN 50 MG TABLET PO SCH (10:45)
[2022-01-28] MEDS: amLODIPine 5 MG TABLET PO SCH (10:45)
[2022-01-29] MEDS: IBUPROFEN 600 MG TABLET PO SCH ×2 (00:04→06:09)
[2022-01-29] MEDS: ACETAMINOPHEN 325 MG TABLET PO SCH ×3 (00:05→08:00)
[2022-01-29 05:16] LABS: HCT - HEMATOCRIT 28.8 % (37.0-47.0); HGB - HEMOGLOBIN 9.6 g/dL (12.0-16.0); MEAN CORPUSCULAR HEMOGLOBIN 29.1 pg (27.0-31.0); MEAN CORPUSCULAR HGB CONC 33.3 g/dL (32.0-36.0); MEAN CORPUSCULAR VOLUME 87.3 fL (81.0-99.0); RED BLOOD COUNT 3.3 10^6/uL (4.20-5.40); RED CELL DISTRIBUTION WIDTH 13.5 % (12.0-15.0); WHITE BLOOD COUNT 5.7 x10^3/uL (4.8-10.8)
[2022-01-29] MEDS: PANTOPRAZOLE 40 MG VIAL IVP SCH (06:09)
[2022-01-29] MEDS ORDERED: LEVOTHYROXINE 75 MCG TABLET PO SCH (07:00)
[2022-01-29 07:43] VITALS: BP 157/78
[2022-01-29] MEDS: atenoloL 25 MG TABLET PO SCH (07:59)
[2022-01-29] MEDS: amLODIPine 5 MG TABLET PO SCH (07:59)
[2022-01-29] MEDS: buPROPion XL 150 MG TABLET PO SCH (07:59)
[2022-01-29] MEDS: LOSARTAN 50 MG TABLET PO SCH (07:59)
[2022-01-29] MEDS: SCOPOLAMINE PATCH TOP SCH (08:00)
[2022-01-29] MEDS: polyethylene glycoL 3350 17 GM PACKET PO SCH (08:00)
--- NOTE | 2022-01-29 08:57 | DISCHARGE SUMMARY ---
"Discharge Summary Admit Date: 01/26/22 Discharge Date: 01/29/22 Discharging Provider: Dez Christina MD Code Status: Attempt Resuscitation Condition at Discharge: Good Discharge Disposition: 01 Home, Self Care - DIAGNOSES Admission Diagnoses: Ascending colon cancer Discharge Diagnoses with Status of Each Condition: Ascending colon cancer resected final pathology pending - HPI History of Present Illness: Healthy 76 year old female with hyperparathyroidism who came in for screening colonoscopy that found an ascending colon cancer - returned for surgical excision. - CONSULTS | PROCEDURES Consultations: None. Procedures: Laparoscopic RIGHT hemicolectomy - HOSPITAL COURSE Hospital Course: Discharge delayed by anastamotic bleed that responded to transexamic acid and transfusion - ALLERGIES Allergies/Adverse Reactions: Allergies Allergy/AdvReac Type Severity Reaction Status Date / Time codeine AdvReac Nausea Verified 12/13/21 07:49 fluoxetine AdvReac Unknown Verified 01/26/22 06:19 venlafaxine AdvReac Unknown Verified 01/26/22 06:19 - MEDICATIONS Home Medications: Ambulatory Orders Medication Instructions Recorded Confirmed Losartan [Cozaar] 50 mg PO BID 12/12/21 01/26/22 amLODIPine [Norvasc] 5 mg PO DAILY 12/12/21 01/26/22 atenoloL [Tenormin] 25 mg PO BID 12/12/21 01/26/22 buPROPion HCL [Bupropion HCl Sr] 150 mg PO BID 12/12/21 01/26/22 Levothyroxine Sodium [Synthroid] 175 mcg PO QDAC 01/26/22 01/26/22 Home Medications Other | Comments: None. - PHYSICAL EXAM AT DISCHARGE General Appearance: positive: No acute distress, Alert Eyes Bilateral: positive: No lid inflammation, Conjunctivae nml ENT: positive: No signs of dehydration Neck: positive: No JVD, Trachea midline Respiratory: positive: Chest non-tender, No respiratory distress, Breath sounds nml Cardiovascular: positive: Regular rate & rhythm, No murmur, No gallop Abdomen: positive: Nml bowel sounds, Tenderness (Slight in RUQ) Skin: positive: Color nml Extremities: positive: Non-tender, Nml appearance. negative: Filiberto's sign/cords Neurologic/Psychiatric: positive: Oriented x3, Sensation nml, Mood/affect nml - LABS Result Diagrams: 01/29/22 05:07 - QUALITY (Female Hip Fx Only) Was patient sent home on osteoporosis medication?: No - FOLLOW UP Follow Up: With me in about a week. - TIME SPENT Time Spent in Discharge (Minutes): 45"
--- NOTE | 2022-01-29 09:01 | Discharge Plan ---
Discharge Plan Problem Reviewed?: Yes Disposition: Home, Self Care Condition: Good Diet: Regular Activity Restrictions: Lifting (Not >15 pounds for 6 weeks) Shower Restrictions: No Driving Restrictions: No Weight Bearing: Full Weight Additional Instructions or Follow Up instructions: Patient will be represented at [facility]. Patient has appointment with Dr. Machado and me. No Smoking: If you smoke, Please STOP! Call for help. Follow-up with: Micki Pozo MD [Primary Care Provider] -
== END 2022-01-29 09:46 | disposition home or self-care (01) | DRG 330 ==
LOC: MS2 06:27
PROVIDERS: ADMIT Surgery; ATTEND Surgery
PROC: 0DTF4ZZ Resection of Right Large Intestine, Percutaneous Endoscopic Approach (ICD-10-PCS; principal; 2022-01-26 07:30)
PROC: 30233N1 Transfusion of Nonautologous Red Blood Cells into Peripheral Vein, Percutaneous Approach (ICD-10-PCS; 2022-01-27)
DX: C18.2 Malignant neoplasm of ascending colon (principal); K91.840 Postprocedural hemorrhage of a digestive system organ or structure following a digestive system procedure; E21.3 Hyperparathyroidism, unspecified; R33.9 Retention of urine, unspecified; D50.0 Iron deficiency anemia secondary to blood loss (chronic); E03.9 Hypothyroidism, unspecified; I10 Essential (primary) hypertension; E78.00 Pure hypercholesterolemia, unspecified; F41.8 Other specified anxiety disorders
CPT/HCPCS: 36415; 85025; 85027; 86850; 86900; 86901; 86920; A9270; J0131; J1170; J3490; J7040; J7120; P9016

== ENCOUNTER 2022-02-01 20:20 | Outpatient (CLI) | payer MEDICARE, OTHER | END 2022-02-01 20:21 | disposition critical access hospital (66) | LOC: EMS 20:20 | DX: R10.11 Right upper quadrant pain (principal); Z90.49 Acquired absence of other specified parts of digestive tract | CPT/HCPCS: A0425; A0429 ==

== ENCOUNTER 2022-02-01 20:41 | Observation (INO) | payer MEDICARE, OTHER ==
[2022-02-01 21:09] LABS: ALBUMIN 3.6 g/dL (3.2-5.5); ALBUMIN/GLOBULIN RATIO 1.6 (1.0-2.2); BILIRUBIN,TOTAL 0.8 mg/dL (0.2-1.0); CALCIUM 9.8 mg/dL (8.5-10.3); CREATININE 0.9 mg/dL (0.4-1.0); POTASSIUM 3.7 mmol/L (3.5-5.0); TOTAL PROTEIN 5.9 g/dL (6.7-8.2)
--- NOTE | 2022-02-01 21:11 | ED Physician Documentation ---
PD HPI ABD PAIN - Stated complaint Stated Complaint: ABD PX - Chief complaint Chief Complaint: Abd Pain - History obtained from History obtained from: Patient - History of Present Illness Timing - onset: Today Timing - details: Gradual onset Pain level now: 8 Quality: Pain Location: RUQ Radiation: Right shoulder Improved by: Laying still Worsened by: Moving, Palpation Associated symptoms: No: Fever, Nausea, Vomiting, Diarrhea, Constipation Recently seen: Surgery - Additional information Additional information: patient had laparoscopic right hemicolectomy 6 days ago with discharge delayed due to anastomotic bleeding that required TXA and RBC transfusions. She presents at this time due to abdominal pain. She tell me "everything was going great" until earlier today in the morning when she had steadily worsening abdominal pain, predominantly RUQ with radiation to right shoulder. She says her pain had been controlled (subsequent to d/c 3 days ago) with tylenol and ibuprofen but she took a dose of oxycodone earlier today due to the severity of this pain. Denies fever, nausea, vomiting. She also feels like she is in urinary retention; she says she is unable to urinate since this afternoon despite increasing suprapubic pain and urge to urinate. She says she had this problem before post- operatively and needed to be catheterized at that time (and thus is requesting I+O cath at this time). Review of Systems Constitutional: reports: Reviewed and negative Nose: reports: Reviewed and negative Throat: reports: Reviewed and negative Cardiac: reports: Reviewed and negative Respiratory: reports: Reviewed and negative GI: reports: Abdominal Pain. denies: Abdominal Swelling, Nausea, Vomiting, Constipation, Diarrhea : reports: Unable to Void. denies: Dysuria, Frequency Skin: reports: Reviewed and negative Musculoskeletal: reports: Reviewed and negative Neurologic: reports: Reviewed and negative Endocrine: reports: Reviewed and negative PD PAST MEDICAL HISTORY - Past Medical History Cardiovascular: Hypertension, High cholesterol, Valve disorder Neuro: None Endocrine/Autoimmune: HyPOthyroidism : None - Past Surgical History General: Appendectomy, Other - Present Medications Home Medications: Ambulatory Orders Medication Instructions Recorded Confirmed Losartan [Cozaar] 50 mg PO BID 12/12/21 01/26/22 amLODIPine [Norvasc] 5 mg PO DAILY 12/12/21 01/26/22 atenoloL [Tenormin] 25 mg PO BID 12/12/21 01/26/22 buPROPion HCL [Bupropion HCl Sr] 150 mg PO BID 12/12/21 01/26/22 Levothyroxine Sodium [Synthroid] 175 mcg PO QDAC 01/26/22 01/26/22 - Allergies Allergies/Adverse Reactions: Allergies Allergy/AdvReac Type Severity Reaction Status Date / Time codeine AdvReac Nausea Verified 02/01/22 20:47 fluoxetine AdvReac Unknown Verified 02/01/22 20:47 venlafaxine AdvReac Unknown Verified 02/01/22 20:47 - Social History Smoking Status: Never smoker PD ED PE NORMAL - Vitals Vital signs reviewed: Yes - General General: Alert and oriented X 3, Well developed/nourished, Other (appears to be uncomfortable due to pain) - HEENT HEENT: Other (pasty/tacky mucous membranes) - Neck Neck: Supple, no meningeal sign - Cardiac Cardiac: RRR, No murmur - Respiratory Respiratory: No respiratory distress, Clear bilaterally - Abdomen Abdomen: Soft, Non distended - Derm Derm: Normal color, Warm and dry - Extremities Extremities: No edema - Neuro Neuro: Alert and oriented X 3 PD ED PE EXPANDED - Abdomen Abdomen: Tender to palpation (TTP is most pronounced on right , RUQ>RLQ. milder TTP on left, with worsening of right-sided pain when left side is palpated), Guarding Results - Vitals Vitals: Vital Signs - 24 hr 02/01/22 02/01/22 02/01/22 20:42 21:12 21:15 Temperature 36.6 C Heart Rate 82 88 84 Respiratory 16 18 20 Rate Blood Pressure 174/80 H 134/76 H 134/76 H O2 Saturation 96 100 100 02/01/22 02/02/22 02/02/22 22:10 00:10 00:11 Temperature Heart Rate 93 95 90 Respiratory 14 20 18 Rate Blood Pressure 147/57 H 148/57 H O2 Saturation 99 100 99 02/02/22 02/02/22 02/02/22 02:37 04:16 06:00 Temperature Heart Rate 81 88 86 Respiratory 18 18 18 Rate Blood Pressure 137/62 H 141/70 H 137/62 H O2 Saturation 99 100 100 Oxygen O2 Source Room air - Labs Labs: Laboratory Tests 02/01/22 02/01/22 02/02/22 20:50 21:23 07:11 WBC 6.9 RBC 3.54 L Hgb 10.2 L Hct 31.3 L MCV 88.4 MCH 28.8 MCHC 32.6 RDW 13.6 Plt Count 229 MPV 9.4 Neut # (Auto) Not Reportable Lymph # (Auto) Not Reportable [place] # (Auto) Not Reportable Eos # (Auto) Not Reportable Baso # (Auto) Not Reportable Absolute Nucleated RBC Not Reportable Total Counted 100 Band Neuts % (Manual) 11 H Abnorm Lymph % (Manual) 0 Metamyelocytes % Nucleated RBC % Not Reportable Neutrophils # (Manual) 6.4 Lymphocytes # (Manual) 0.2 L Monocytes # (Manual) 0.3 Eosinophils # (Manual) 0.0 Basophils # (Manual) 0.0 Differential Comment MANUAL DIFFERENTIAL Manual Slide Review WBC Morphology NORMAL APPEARANCE Platelet Estimate NORMAL (130-450,000) Platelet Morphology NORMAL APPEARANCE RBC Morph Micro Appear NORMAL APPEARANCE Sodium 133 L Potassium 3.7 Chloride 99 L Carbon Dioxide 24 Anion Gap 10.0 BUN 18 Creatinine 0.9 Estimated GFR (MDRD) 61 L Glucose 133 H Calcium 9.8 Total Bilirubin 0.8 AST 85 H ALT 64 H Alkaline Phosphatase 64 Total Protein 5.9 L Albumin 3.6 Globulin 2.3 Albumin/Globulin Ratio 1.6 Lipase 45 Urine Color YELLOW Urine Clarity CLEAR Urine pH 6.0 Ur Specific [place] <=1.005 Urine Protein NEGATIVE Urine Glucose (UA) NEGATIVE Urine Ketones NEGATIVE Urine Occult Blood NEGATIVE Urine Nitrite NEGATIVE Urine Bilirubin NEGATIVE Urine Urobilinogen 0.2 (NORMAL) Ur Leukocyte Esterase NEGATIVE Ur Microscopic Review NOT INDICATED Urine Culture Comments NOT INDICATED 02/02/22 02/02/22 07:59 07:59 WBC 10.6 RBC 3.21 L Hgb 9.4 L Hct 28.3 L MCV 88.2 MCH 29.3 MCHC 33.2 RDW 13.6 Plt Count 205 MPV 9.7 Neut # (Auto) Not Reportable Lymph # (Auto) Not Reportable [place] # (Auto) Not Reportable Eos # (Auto) Not Reportable Baso # (Auto) Not Reportable Absolute Nucleated RBC Not Reportable Total Counted 100 Band Neuts % (Manual) 14 H Abnorm Lymph % (Manual) 0 Metamyelocytes % 1 H Nucleated RBC % Not Reportable Neutrophils # (Manual) 9.5 H Lymphocytes # (Manual) 0.2 L Monocytes # (Manual) 0.6 Eosinophils # (Manual) 0.1 Basophils # (Manual) 0.0 Differential Comment MANUAL DIFFERENTIAL Manual Slide Review Indicated WBC Morphology NORMAL APPEARANCE Platelet Estimate NORMAL (130-450,000) Platelet Morphology NORMAL APPEARANCE RBC Morph Micro Appear 1+ OVALOCYTES Sodium 133 L Potassium 4.1 Chloride 100 L Carbon Dioxide 25 Anion Gap 8.0 BUN 14 Creatinine 0.8 Estimated GFR (MDRD) 70 L Glucose 114 H Calcium 9.5 Total Bilirubin 1.0 AST 47 H ALT 51 Alkaline Phosphatase 47 Total Protein 5.6 L Albumin 3.1 L Globulin 2.5 Albumin/Globulin Ratio 1.2 Lipase Urine Color Urine Clarity Urine pH Ur Specific [place] Urine Protein Urine Glucose (UA) Urine Ketones Urine Occult Blood Urine Nitrite Urine Bilirubin Urine Urobilinogen Ur Leukocyte Esterase Ur Microscopic Review Urine Culture Comments - Rads (name of study) CT A/P with IV contrast Radiology: Prelim report reviewed, See rad report CT A/P with PO contrast Radiology: Prelim report reviewed, See rad report PD MEDICAL DECISION MAKING - ED course Complexity details: reviewed old records, reviewed results, re-evaluated patient, considered differential, d/w patient ED course: 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 She is afebrile and WBC is normal. She reports adequate relief of pain with 2mg IV morphine "unless I move" (per patient), and she declines further pain medication for the remainder of her ED stay. She continued to report significant pain with movement, and late in stay she was unable to use a bedside commode because of pain associated with mov ement. Her initial CT is done with IV contrast only, demonstrates free air and small free fluid. D/W Dr. Plasencia as well as Dr. Christina. The result of these conversations is plan to repeat CT A/P but this time with PO contrast (no need to repeat IV contrast). The second CT is interpreted by radiology as "Similar volume of free air and free fluid in the right upper quadrant. Inadequate gastrointestinal contrast filling of the distal small bowel and colon. In particular, contrast did not progress to the level of the anastomosis prior to image acquisition. No extraluminal oral contrast is identified to suggest a leak, within this limitation. Repeat delayed imaging after contrast transits through the anastomosis would be recommended." I recontacted Dr. Plasencia. Plan is she will admit the patient later this morning, hold in ED until Dr. Plasencia comes in to admit. Also in this discussion was to give IV zosyn, which is then ordered and given. In the AM Dr. Plasencia evaluated patient in ED, entered admission orders. She requests that CBC and CMP as well as repeat CT A/P to be ordered, and I entered these orders. Patient went to floor before the CT was done. Departure - Departure Disposition: ED Place in Observation Clinical Impression: Postoperative generalized abdominal pain Condition: Stable Discharge Date/Time: 02/02/22 08:59
[2022-02-01] MEDS ORDERED: MORPHINE 2 MG/ML CARPUJECT IVP STA (21:16)
[2022-02-01] MEDS ORDERED: SODIUM CHLORIDE 0.9% 500 ML IV STA (21:18)
[2022-02-01 21:26] LABS: BASOPHILS % (AUTO) 0.4 %; EOSINOPHILS % (AUTO) 4.2 %; HCT - HEMATOCRIT 31.3 % (37.0-47.0); HGB - HEMOGLOBIN 10.2 g/dL (12.0-16.0); LYMPHOCYTES % (AUTO) 3.1 %; MEAN CORPUSCULAR HEMOGLOBIN 28.8 pg (27.0-31.0); MEAN CORPUSCULAR HGB CONC 32.6 g/dL (32.0-36.0); MEAN CORPUSCULAR VOLUME 88.4 fL (81.0-99.0); MEAN PLATELET VOLUME 9.4 fL (7.9-10.8); MONOCYTES % (AUTO) 6.4 %; NEUTROPHILS % (AUTO) 85.5 %; PLT - PLATELET COUNT 229 10^3/uL (130-450); RED BLOOD COUNT 3.54 10^6/uL (4.20-5.40); RED CELL DISTRIBUTION WIDTH 13.6 % (12.0-15.0); WHITE BLOOD COUNT 6.9 x10^3/uL (4.8-10.8)
[2022-02-01 21:28] LABS: ABNORMAL LYMPHS % (MANUAL) 0 %
[2022-02-01] MEDS ORDERED: IOVERSOL 320 100 ML VIAL IVP ONE ×2 (21:32→22:05)
[2022-02-01 22:01] LABS: BAND NEUTROPHILS % (MANUAL) 11 %; LYMPHOCYTES # (MANUAL) 0.2 10^3/uL (1.5-3.5); LYMPHOCYTES % (MANUAL) 3 %; MONOCYTES # (MANUAL) 0.3 10^3/uL (0.0-1.0); NEUTROPHILS # (MANUAL) 6.4 10^3/uL (1.5-6.6)
[2022-02-01 22:02] LABS: DIFFERENTIAL COMMENT MANUAL DIFFERENTIAL; PLATELET ESTIMATE, MANUAL NORMAL (130-450,000) (NORMAL); PLATELET MORPHOLOGY NORMAL APPEARANCE (NORMAL); RBC MORPHOLOGY (MULTIPLE) NORMAL APPEARANCE (NORMAL); WBC MORPHOLOGY (MULTIPLE) NORMAL APPEARANCE (NORMAL)
--- NOTE | 2022-02-01 22:56 | CT Report ---
PROCEDURE: Abdomen/Pelvis W INDICATIONS: abd. pain Additional information: Per the referring physician, patient's abdominal surgery was 6 days ago. CONTRAST: IV CONTRAST: Optiray 320 ml: 100 PO CONTRAST: *NO PO CONTRAST TECHNIQUE: After the administration of intravenous contrast, 5 mm thick sections acquired from the diaphragms to the symphysis. 5 mm thick coronal and sagittal reformats were acquired. For radiation dose reducti on, the following was used: automated exposure control, adjustment of mA and/or kV according to akil ent size. COMPARISON: None. FINDINGS: Image quality: Excellent. ABDOMEN: Lung bases: 3 mm nodule in the lateral right lower lobe appears stable (12/4). Heart size is normal. Pectus excavatum is noted. Solid organs: Previously seen lesion in hepatic segment 8 is obscured by adjacent gas. Gallbladder i s mildly distended without any inflammatory changes or gallstones. Biliary system is non dilated. Pa ncreas enhances normally. Clustered hypoattenuating lesions in the posterior spleen appear changed un changed when compared to the CT from 01/01/2022. Mild thickening of the adrenal glands appear stable wi thout a discrete nodule. Kidneys demonstrate normal size and enhancement, without hydronephrosis. Peritoneum and bowel: Postsurgical changes are seen with anastomotic sutures in the right lower quadr ant. A large point of stool is seen throughout the colon. No signs of bowel obstruction. No focal bow el perforation is identified. A small amount of perihepatic free fluid is seen. Small amount of pneum operitoneum is seen and is most prominent in the upper and anterior nondependent portions of the abdo men. Nodes and vessels: No retroperitoneal or mesenteric adenopathy by size criteria. Aorta and inferior vena cava are normal in size. [id number] aortic atherosclerotic calcifications. Miscellaneous: No ventral hernias. PELVIS: Genitourinary: Bladder wall thickness is normal. Miscellaneous: No inguinal hernias or adenopathy. Bones: No suspicious bony lesions. No vertebral body compression fractures. Trace levoconvex curva ture of the spine. IMPRESSION: 1.Recent postsurgical changes with bowel anastomosis in the right lower quadrant. A small amount of f ree air and free fluid are seen within the upper abdomen. Findings may be related to the recent surge ry although anastomotic leakage is not excluded. Large volume of stool throughout the colon. 2.Clustered hypodensities in the posterior spleen appear stable. Previously seen small right hepatic lesion is not well visualized on the current exam. Findings were discussed with the referring physician, Dr. Rodriguez, by telephone on 02/01/2022 at 10:45 PM. Reviewed by: Mac Holm MD on 02/01/2022 10:55 PM PST Approved by: Mac Holm MD on 02/01/2022 10:55 PM PST Station ID: [id number]
[2022-02-02] MEDS ORDERED: IOVERSOL 320 50 ML VIAL ONE (01:01)
[2022-02-02] MEDS ORDERED: IOVERSOL 320 50 ML VIAL PO ONE (03:04)
[2022-02-02] MEDS ORDERED: PIPERACILLIN/TAZOBACTAM 3.375 GM in SODIUM CHLORIDE 0.9% MINIBAG 100 ML IV STA (03:49)
[2022-02-02 07:27] LABS: BILIRUBIN,URINE NEGATIVE (NEGATIVE); GLUCOSE, URINE (UA) NEGATIVE (NEGATIVE); KETONES,URINE (UA) NEGATIVE (NEGATIVE); LEUKOCYTE ESTERASE, URINE NEGATIVE (NEGATIVE); NITRITE,URINE NEGATIVE (NEGATIVE); OCCULT BLOOD,URINE NEGATIVE (NEGATIVE); PROTEIN,URINE NEGATIVE (NEGATIVE); UROBILINOGEN,URINE 0.2 (NORMAL) E.U./dL (NORMAL)
[2022-02-02 07:50] LABS: CLARITY,URINE CLEAR (CLEAR)
[2022-02-02] MEDS ORDERED: ONDANSETRON 4 MG/2 ML VIAL IVP PRN (08:00)
[2022-02-02] MEDS ORDERED: HYDROmorphone 1 MG/ML CARPUJECT IVP PRN (08:00)
[2022-02-02] MEDS ORDERED: SODIUM CHLORIDE FLUSH 0.9% 10 ML SYRINGE IVP PRN (08:00)
[2022-02-02 08:05] LABS: BASOPHILS % (AUTO) 0.6 %; EOSINOPHILS % (AUTO) 0.4 %; HCT - HEMATOCRIT 28.3 % (37.0-47.0); HGB - HEMOGLOBIN 9.4 g/dL (12.0-16.0); LYMPHOCYTES % (AUTO) 4.3 %; MEAN CORPUSCULAR HEMOGLOBIN 29.3 pg (27.0-31.0); MEAN CORPUSCULAR HGB CONC 33.2 g/dL (32.0-36.0); MEAN CORPUSCULAR VOLUME 88.2 fL (81.0-99.0); MEAN PLATELET VOLUME 9.7 fL (7.9-10.8); MONOCYTES % (AUTO) 6.5 %; NEUTROPHILS % (AUTO) 87.8 %; PLT - PLATELET COUNT 205 10^3/uL (130-450); RED BLOOD COUNT 3.21 10^6/uL (4.20-5.40); RED CELL DISTRIBUTION WIDTH 13.6 % (12.0-15.0); WHITE BLOOD COUNT 10.6 x10^3/uL (4.8-10.8)
[2022-02-02 08:06] LABS: SLIDE REVIEW? Indicated
[2022-02-02 08:07] LABS: ABNORMAL LYMPHS % (MANUAL) 0 %
[2022-02-02 08:16] LABS: ALBUMIN 3.1 g/dL (3.2-5.5); ALBUMIN/GLOBULIN RATIO 1.2 (1.0-2.2); CALCIUM 9.5 mg/dL (8.5-10.3); CREATININE 0.8 mg/dL (0.4-1.0); POTASSIUM 4.1 mmol/L (3.5-5.0); TOTAL PROTEIN 5.6 g/dL (6.7-8.2)
--- NOTE | 2022-02-02 08:16 | CT Report ---
PROCEDURE: Abdomen/Pelvis WO INDICATIONS: abdominal pain, recent hemicolectomy TECHNIQUE: Noncontrast 5 mm thick sections acquired from the diaphragms to the symphysis. 5 mm coronal and sagi ttal reformats were then performed. For radiation dose reduction, the following was used: automated exposure control, adjustment of mA and/or kV according to patient size. COMPARISON: None. FINDINGS: No IV contrast was administered, which limits evaluation for infectious/inflammatory process within t he abdomen or pelvis. Orally administered contrast is predominantly within the stomach and duodenum, extending to the level of the proximal jejunum. There is no contrast in the distal small bowel or within the colon. There i s no free peritoneal oral contrast identified to suggest a leak, although contrast did not progress t o the level of the anastomosis prior to image acquisition. Post surgical changes of partial right hemicolectomy. Free air and free fluid seen previously are sim ilar in volume. Large volume of formed stool throughout the colon is similar. No abnormally dilated l oop of bowel to indicate obstruction. No acute finding in the liver, spleen, pancreas, adrenal glands, or kidneys with caveat that IV contr ast was not administered. Status post right partial hemicolectomy. Similar volume of free air and free fluid in the right upper quadrant. Inadequate gastrointestinal contrast filling of the distal small bowel and colon. In particular, cont rast did not progress to the level of the anastomosis prior to image acquisition. No extraluminal ora l contrast is identified to suggest a leak, within this limitation. Repeat delayed imaging after contrast transits through the anastomosis would be recommended. No significant change from pulmonary report. Reviewed by: Faustino Robles MD on 02/02/2022 8:15 AM PST Approved by: Faustino Robles MD on 02/02/2022 8:15 AM PST Station ID: [id number]
[2022-02-02 09:00] LABS: BAND NEUTROPHILS % (MANUAL) 14 %; DIFFERENTIAL COMMENT MANUAL DIFFERENTIAL; EOSINOPHILS # (MANUAL) 0.1 10^3/uL (0-0.7); LYMPHOCYTES # (MANUAL) 0.2 10^3/uL (1.5-3.5); LYMPHOCYTES % (MANUAL) 2 %; METAMYELOCYTES % (MANUAL) 1 %; MONOCYTES # (MANUAL) 0.6 10^3/uL (0.0-1.0); NEUTROPHILS # (MANUAL) 9.5 10^3/uL (1.5-6.6); PLATELET ESTIMATE, MANUAL NORMAL (130-450,000) (NORMAL); PLATELET MORPHOLOGY NORMAL APPEARANCE (NORMAL); WBC MORPHOLOGY (MULTIPLE) NORMAL APPEARANCE (NORMAL)
[2022-02-02] MEDS ORDERED: HYDROmorphone 0.5 MG/0.5 ML SYRINGE IVP PRN (09:14)
[2022-02-02 09:33] LABS: B. PARAPERTUSSIS- RESP PCR PAN NOT DETECTED; B. PERTUSSIS- RESP PCR PANEL NOT DETECTED; C. PNEUMONIAE- RESP PCR PANEL NOT DETECTED; CORONAVIRUS 229E-RESP PCR NOT DETECTED; CORONAVIRUS HKU1-RESP PCR NOT DETECTED; CORONAVIRUS NL63-RESP PCR NOT DETECTED; CORONAVIRUS OC43-RESP PCR NOT DETECTED; HUMAN METAPNEUMOVIRUS NOT DETECTED; INFLUENZA A- RESP PCR PANEL NOT DETECTED; INFLUENZA B - RESP PCR PANEL NOT DETECTED; M. PNEUMONIAE- RESP PCR PANEL NOT DETECTED; PARAINFLUENZA VIRUS 1 NOT DETECTED; PARAINFLUENZA VIRUS 2 NOT DETECTED; PARAINFLUENZA VIRUS 3 NOT DETECTED; PARAINFLUENZA VIRUS 4 NOT DETECTED; RHINOVIRUS/ENTEROVIRUS NOT DETECTED; RSV- RESP PCR PANEL NOT DETECTED; SARS-CoV-2 -RESP PCR PANEL NOT DETECTED
[2022-02-02] MEDS: SODIUM CHLORIDE 0.9% 1,000 ML IV SCH ×2 (10:26→21:06)
[2022-02-02] MEDS: SODIUM CHLORIDE FLUSH 0.9% 10 ML SYRINGE IVP SCH ×3 (10:26→23:44)
[2022-02-02] MEDS: LOSARTAN 50 MG TABLET PO SCH ×2 (10:26→21:06)
[2022-02-02] MEDS: buPROPion SR 150 MG TABLET PO SCH ×2 (10:26→21:07)
[2022-02-02] MEDS: atenoloL 25 MG TABLET PO SCH ×2 (10:26→21:06)
[2022-02-02] MEDS: amLODIPine 5 MG TABLET PO SCH (10:26)
[2022-02-02] MEDS: PANTOPRAZOLE 40 MG VIAL IVP SCH (10:28)
[2022-02-02] MEDS: LEVOTHYROXINE 75 MCG TABLET PO SCH (10:54)
[2022-02-02] MEDS: LEVOTHYROXINE 100 MCG TABLET PO SCH (10:55)
[2022-02-02] MEDS: ACETAMINOPHEN 1,000 MG/100 ML 100 ML IV SCH ×3 (11:00→22:18)
[2022-02-02] MEDS: PIPERACILLIN/TAZOBACTAM 3.375 GM in SODIUM CHLORIDE 0.9% MINIBAG 100 ML IV SCH ×3 (11:20→23:43)
--- NOTE | 2022-02-02 11:23 | CT Report ---
PROCEDURE: Abdomen/Pelvis WO INDICATIONS: Abdominal pain. TECHNIQUE: Noncontrast 5 mm thick sections acquired from the diaphragms to the symphysis. 5 mm coronal and sagi ttal reformats were then performed. For radiation dose reduction, the following was used: automated exposure control, adjustment of mA and/or kV according to patient size. COMPARISON: CT abdomen pelvis 02/02/2022 1:58 AM, CT abdomen pelvis 02/01/2022, CT abdomen pelvis 2021. FINDINGS: Image quality: Excellent. ABDOMEN: Lung bases: There is minimal dependent atelectasis bilaterally. Heart size is normal. Solid organs: Noncontrast evaluation of the liver demonstrates no discrete mass lesion. Gallbladder i s surgically absent. Spleen is normal in size. A few small clustered hypodensities are redemonstrated posteriorly in the spleen suggestive of complex cysts. There is an associated region of cyst wall ca lcification. Findings suggest sequelae of prior infection or trauma. Pancreas is normal in contours. There is thickening of the adrenal glands redemonstrated bilaterally. Kidneys demonstrate no hydronep hrosis. Peritoneum and bowel: Postsurgical changes are redemonstrated status post partial right hemicolectom y with anastomosis in the right lower quadrant. There has been interval passage of oral contrast beyo nd the level of the anastomosis and into the descending colon. No definite evidence of extraluminal c ontrast extravasation. There is mild distention of a few small bowel loops in the lower abdomen with scattered air-fluid levels as well as mild to moderate stool distention throughout the colon. The fin dings are suggestive of a postoperative ileus. No definite bowel obstruction. There is mild segmental wall thickening of a small bowel loop in the right lower quadrant with associated mild fat stranding consistent with a mild enteritis. There is a small to moderate amount of free fluid redemonstrated in the abdomen and pelvis with depen dent hyperdense fluid in the pelvis consistent with sequelae of hemoperitoneum. Multiple small foci o f free air are redemonstrated within the upper abdomen, similar in appearance to the recent studies f rom 02/01/2022 and 02/02/2022. There is mild thickening of the peritoneum with associated mild peritone al enhancement on the recent contrast-enhanced CT compatible with a nonspecific peritonitis. No discr ete loculated fluid collection to suggest an abscess. Nodes and vessels: No retroperitoneal or mesenteric adenopathy by size criteria. Aorta and inferior vena cava are normal in caliber. Miscellaneous: No ventral hernias. PELVIS: Genitourinary: Bladder wall thickness is normal. Miscellaneous: No inguinal hernias or adenopathy. Bones: No suspicious bony lesions. No vertebral body compression fractures. IMPRESSION: 1. Interval passage of oral contrast beyond the surgical anastomosis into the ascending colon. No def inite evidence of extraluminal contrast extravasation. 2. Small to moderate amount of intraperitoneal free fluid redemonstrated with internal high density c onsistent with sequelae of prior hemoperitoneum, as clinically suspected following surgery as per Dr. Plasencia. 3. Residual foci of free air within the upper abdomen appears similar to the recent prior studies. Th e findings may represent residual sequelae of prior hemicolectomy one week prior, but sequelae of a s mall anastomotic leak or bowel perforation cannot be fully excluded. 4. Slight peritoneal thickening with enhancement on the recent contrast-enhanced study compatible wit h a nonspecific peritonitis. 5. Mild segmental wall thickening of small bowel loop in the right lower quadrant with mild adjacent fat stranding compatible with a nonspecific enteritis. 6. Mild dilatation of a few small bowel loops in the lower abdomen with scattered air-fluid levels as well as mild distention of the colon suggestive of a postoperative ileus. No definite bowel obstruct ion. Findings discussed with Dr. Plasencia on 02/02/2022 at 11:00 AM. Reviewed by: Robert Sanders MD on 02/02/2022 11:21 AM PST Approved by: Robert Sanders MD on 02/02/2022 11:21 AM PST Station ID: [id number]
--- NOTE | 2022-02-02 11:57 | SURGERY HX AND PHYSICAL(T) ---
Surgical History & Physical - Chief Complaint/HPI Chief Complaint: Abdominal pain History of Present Illness: Senait is a pleasant 76-year-old lady who was discharged from the hospital after short admission following laparoscopic right hemicolectomy. This was done exactly 1 week ago and was complicated by anastomotic hemorrhage requiring transexamic acid and transfusion. She reports that she was feeling well, walking around and thinking everything was perfect when she had her first bowel movement since surgery. This was accompanied by severe abdominal pain. She reports that she was in so much pain she could hardly stand up when she came into the emergency room. She was seen and evaluated in the emergency room and found to have essentially normal labs but a very tender abdomen. CT scan of the abdomen and pelvis was done with IV contrast only and showed free fluid and some free air with some discussion about whether or not it was too much free air to be 1 week postop.The study was repeated with oral contrast only but by the time the images were obtained, the oral contrast had not traversed the area of the anastomosis. She was admitted overnight and started on IV antibiotics. The CT was repeated once more this morning and revealed progress of the contrast through the anastomosis and into the colon.The patient reports that she is feeling better this morning. She had a moderate sized bowel movement and has been able to empty her bladder without difficulty. She is tolerating a clear liquid diet.She has been afebrile since she was admitted here. There has been no evidence of tachycardia but she is on a beta-shasha so that could be somewhat deceptive as an indicator.At this time, she is sitting up in her bed appearing comfortable and talking to her nurse. She was able to take herself to the bathroom without difficulty and empty both her bowels and her bladder and crawl back in the bed. She tells me that she still has some pain up under her ribs bilaterally but in general she feels much better. - PMH/PSH/Social Hx Does the pt have a hx of MRSA?: No Neurological History: None Cardiovascular: Hypertension, High cholesterol, Valve disorder Respiratory: None Endocrine/Autoimmune: HyPOthyroidism Gastrointestinal: None Urinary: None Musculoskeletal: None Blood Disorders: None Psychiatric: None PMH Other: R hemicolectomy with astomosis, laprascopic General: Appendectomy, Other Smoking Status: Never smoker - Home Meds and Allergies Home Medications: Losartan [Cozaar] 50 mg PO BID 12/12/21 amLODIPine [Norvasc] 5 mg PO DAILY 12/12/21 atenoloL [Tenormin] 25 mg PO BID 12/12/21 buPROPion HCL [Bupropion HCl Sr] 150 mg PO BID 12/12/21 Levothyroxine Sodium [Synthroid] 175 mcg PO QDAC 01/26/22 Allergies/Adverse Reactions: Allergies Allergy/AdvReac Type Severity Reaction Status Date / Time codeine AdvReac Nausea Verified 02/01/22 20:47 - Vital Signs Heart Rate: 85 Blood Pressure: 130/63 Temperature: 37.4 C Respiratory Rate: 18 O2 Saturation: 100 Weight (kg): 59 kg Height: 1.73 m - Physical Exam General Appearance: positive: No acute distress, Alert Eyes Bilatera: positive: Normal inspection, PERRL, EOMI ENT: positive: ENT inspection nml Neck: positive: No JVD Respiratory: positive: No respiratory distress, Breath sounds nml Cardiovascular: positive: Regular rate & rhythm Abdomen: positive: Nml bowel sounds, Tenderness, Other (Incisions are well- healed and there is no erythema. No visible bruising. Active bowel sounds.To palpation in bilateral upper quadrants but no true peritoneal signs even with rocking the abdomen.) Back: positive: Nml inspection Skin: positive: Color nml Extremities: positive: Non-tender, Full ROM, Nml appearance Neurologic/Psychiatric: positive: Oriented x3 - Patient Review Patient Review: Problems were reviewed with the patient during this visit. Medications were reviewed with the patient during this visit. Allergies were reviewed this patient during this visit. Pertinent Tests Reviewed: All pertitent test for this patient were reviewed. - Assessment & Plan Assessment and Plan: Status post right hemicolectomy with a new episode of abdominal pain that seems to be significantly improved after bowel movement. There is no evidence of anastomotic leak. We do have some fluid and air in the abdomen which is consistent with her history of postoperative hemorrhage. I have spoken with Dr. Griggs as per telephone and we have devised the following plan 1. We will continue with Zosyn and watchful waiting. 2. Clear liquid diet as tolerated. 3. Minimal narcotic pain medications to limit the risk of ileus. 4. Start Lovenox in the morning.SCDs tonight. 5. Recheck labs in the a.m.
[2022-02-03] MEDS: ACETAMINOPHEN 1,000 MG/100 ML 100 ML IV SCH ×3 (04:34→16:11)
[2022-02-03] MEDS: PANTOPRAZOLE 40 MG VIAL IVP SCH (06:07)
[2022-02-03] MEDS: LEVOTHYROXINE 75 MCG TABLET PO SCH (06:07)
[2022-02-03] MEDS: PIPERACILLIN/TAZOBACTAM 3.375 GM in SODIUM CHLORIDE 0.9% MINIBAG 100 ML IV SCH ×2 (06:07→12:07)
[2022-02-03] MEDS: LEVOTHYROXINE 100 MCG TABLET PO SCH (06:07)
[2022-02-03] MEDS: SODIUM CHLORIDE 0.9% 1,000 ML IV SCH ×2 (06:07→16:43)
[2022-02-03 06:32] LABS: BASOPHILS % (AUTO) 0.2 %; EOSINOPHILS % (AUTO) 0.3 %; HCT - HEMATOCRIT 27.5 % (37.0-47.0); LYMPHOCYTES # (AUTO) 0.3 10^3/uL (1.5-3.5); MEAN CORPUSCULAR HGB CONC 32.7 g/dL (32.0-36.0); MEAN CORPUSCULAR VOLUME 88.7 fL (81.0-99.0); MEAN PLATELET VOLUME 9.9 fL (7.9-10.8); MONOCYTES # (AUTO) 0.5 10^3/uL (0.0-1.0); MONOCYTES % (AUTO) 5.1 %; NEUTROPHILS # (AUTO) 8.4 10^3/uL (1.5-6.6); PLT - PLATELET COUNT 218 10^3/uL (130-450); RED CELL DISTRIBUTION WIDTH 13.8 % (12.0-15.0); WHITE BLOOD COUNT 9.3 x10^3/uL (4.8-10.8)
[2022-02-03 06:44] LABS: ALBUMIN 2.9 g/dL (3.2-5.5); ALBUMIN/GLOBULIN RATIO 1.2 (1.0-2.2); BILIRUBIN,TOTAL 0.6 mg/dL (0.2-1.0); CALCIUM 9.3 mg/dL (8.5-10.3); CREATININE 0.7 mg/dL (0.4-1.0); POTASSIUM 3.3 mmol/L (3.5-5.0); TOTAL PROTEIN 5.4 g/dL (6.7-8.2)
[2022-02-03] MEDS: LOSARTAN 50 MG TABLET PO SCH (08:12)
[2022-02-03] MEDS: atenoloL 25 MG TABLET PO SCH (08:12)
[2022-02-03] MEDS: amLODIPine 5 MG TABLET PO SCH (08:12)
[2022-02-03] MEDS: buPROPion SR 150 MG TABLET PO SCH (08:12)
[2022-02-03] MEDS: SODIUM CHLORIDE FLUSH 0.9% 10 ML SYRINGE IVP SCH (08:13)
--- NOTE | 2022-02-03 08:38 | PHARMACY PROGRESS NOTE ---
- Best Possible Medication History Admit Date and Time: 02/02/22 0800 Processed by: Pharmacy Medication History completed: Yes Secondary Source(s): Insurance records As the person ultimately responsible for medication therapy, providers are able to order a medication from an existing home medication list in [facility] via the "Reconcile Routine" prior to Confirmation of that medication by call center support consultant. Such practice is discouraged except when the physician, in their clinical judgment, deems that a medical need exists for a medication without regard to previous use.
[2022-02-03] MEDS ORDERED: DOCUSATE SODIUM 100 MG CAPSULE PO SCH (09:00)
[2022-02-03] MEDS ORDERED: ENOXAPARIN 30 MG/0.3 ML SYRINGE SUBQ SCH (09:00)
--- NOTE | 2022-02-03 15:01 | Discharge Plan ---
Discharge Plan Problem Reviewed?: Yes Disposition: Home, Self Care Condition: Stable Prescriptions: Amox/Clav 875/125 [Augmentin 875/125 Tab] 1 tablet PO Q12H 6 Days #11 tablet Diet: Cardiac Activity Restrictions: 10 lb lifting limit Shower Restrictions: No Driving Restrictions: Yes (not while havig pain) No Smoking: If you smoke, Please STOP! Call for help. Follow-up with: Dez Christina MD [Provider Admit Priv/Credential] -
--- NOTE | 2022-02-03 15:02 | DISCHARGE SUMMARY ---
"Discharge Summary Admit Date: 02/01/22 Discharge Date: 02/03/22 Discharging Provider: Erinn Primary Care Provider: Sánchez Code Status: Attempt Resuscitation Condition at Discharge: Stable Discharge Disposition: 01 Home, Self Care - DIAGNOSES Admission Diagnoses: Generalized abdominal pain Discharge Diagnoses with Status of Each Condition: Improved - HPI History of Present Illness: Senait had had a right hemicolectomy 1 week ago for very early colon cancer. Her recovery was complicated only by a post operative anastamotic hemorrhage. She recovered from this and was discharged. On the date of admission, she presented to the ED with complaint of severe bilateral abdominal pain that started a couple of hours after having her first significant bowel movement. She was evaluated in the ED and noted to have some free fluid and free air in the abdominal cavity on CT. I was impossible to determine if this was intraperitoneal air retained after surgery or a new and pathologic finding. A repeat CT scan with oral contrast revealed free movement of contrast into the large bowel without any extravasation. She was admitted for observation and supportive care. - CONSULTS | PROCEDURES Consultations: None Procedures: None - HOSPITAL COURSE Hospital Course: Shortly after the CT with oral contrast was competed, the patient experienced another bowel movement and had improvement in symptoms. She was started on IV antibiotic for concern of bacterial contamination of the intra-abdominal fulid collection. She was noted to have continued improvement in appetite and pain control and was able to move freely around her room with only mild post operative discomfort. She was afebrile throughout her stay. She has had several bowel movements over night and has required only tylenol for pain control. She is discharged to her home in the care of her family. She will follow up with Dr. Christina at her previously scheduled appt on Saturday. She tolerated a regular diet and denies any nausea. - ALLERGIES Allergies/Adverse Reactions: Allergies Allergy/AdvReac Type Severity Reaction Status Date / Time codeine AdvReac Nausea Verified 02/01/22 20:47 - MEDICATIONS Home Medications: Ambulatory Orders Medication Instructions Recorded Confirmed Losartan [Cozaar] 50 mg PO BID 12/12/21 02/03/22 amLODIPine [Norvasc] 5 mg PO DAILY 12/12/21 02/03/22 atenoloL [Tenormin] 25 mg PO BID 12/12/21 02/03/22 buPROPion HCL [Bupropion HCl Sr] 150 mg PO BID 12/12/21 02/03/22 Levothyroxine Sodium [Synthroid] 175 mcg PO QDAC 01/26/22 02/03/22 Amox/Clav 875/125 [Augmentin 1 tablet PO Q12H 6 Days #11 tablet 02/03/22 875/125 Tab] - PHYSICAL EXAM AT DISCHARGE General Appearance: positive: No acute distress, Alert Eyes Bilateral: positive: PERRL, EOMI ENT: positive: ENT inspection nml Neck: positive: Nml inspection Respiratory: positive: No respiratory distress Cardiovascular: positive: Regular rate & rhythm Abdomen: positive: Nml bowel sounds, Tenderness Back: positive: Nml inspection Skin: positive: Color nml Extremities: positive: Non-tender, Full ROM Neurologic/Psychiatric: positive: Oriented x3 - LABS Result Diagrams: 02/03/22 06:25 02/03/22 06:25 - QUALITY (Female Hip Fx Only) Was patient sent home on osteoporosis medication?: No - FOLLOW UP Follow Up: Dr. Christina on Saturday as previously scheduled - TIME SPENT Time Spent in Discharge (Minutes): 20"
[2022-02-03 15:36] VITALS: BP 150/63
== END 2022-02-03 17:12 | disposition home or self-care (01) ==
LOC: ED 20:41 → MS2 02-02 08:00
PROVIDERS: ADMIT Surgery; ATTEND Surgery
DX: R10.9 Unspecified abdominal pain (principal); Z20.822 Contact with and (suspected) exposure to COVID-19; Z90.49 Acquired absence of other specified parts of digestive tract; I10 Essential (primary) hypertension; C18.9 Malignant neoplasm of colon, unspecified; E78.00 Pure hypercholesterolemia, unspecified; E03.9 Hypothyroidism, unspecified; Z98.0 Intestinal bypass and anastomosis status; R33.9 Retention of urine, unspecified
CPT/HCPCS: 36415; 51701; 74176; 74177; 80053; 81003; 83690; 85025; 87631; 96365; 96366; 96367; 96372; 96375; 96376; 99284; 99285; A9270; G0378; J0131; J1170; J1650; Q9967; 0202U; 81001; 87086

== ENCOUNTER 2022-02-19 14:53 | Outpatient (CLI) | payer MEDICARE, OTHER ==
[2022-02-19 15:09] LABS: BASOPHILS # (AUTO) 0.1 10^3/uL (0.0-0.1); BASOPHILS % (AUTO) 1.2 %; EOSINOPHILS % (AUTO) 0.5 %; HCT - HEMATOCRIT 33.9 % (37.0-47.0); HGB - HEMOGLOBIN 10.6 g/dL (12.0-16.0); LYMPHOCYTES # (AUTO) 1.2 10^3/uL (1.5-3.5); LYMPHOCYTES % (AUTO) 17.5 %; MEAN CORPUSCULAR HEMOGLOBIN 27.7 pg (27.0-31.0); MEAN CORPUSCULAR HGB CONC 31.3 g/dL (32.0-36.0); MEAN CORPUSCULAR VOLUME 88.5 fL (81.0-99.0); MEAN PLATELET VOLUME 9.7 fL (7.9-10.8); MONOCYTES # (AUTO) 0.6 10^3/uL (0.0-1.0); MONOCYTES % (AUTO) 9.5 %; NEUTROPHILS # (AUTO) 4.7 10^3/uL (1.5-6.6); PLT - PLATELET COUNT 467 10^3/uL (130-450); RED BLOOD COUNT 3.83 10^6/uL (4.20-5.40); RED CELL DISTRIBUTION WIDTH 13.6 % (12.0-15.0); WHITE BLOOD COUNT 6.6 x10^3/uL (4.8-10.8)
== END 2022-02-19 14:54 | disposition home or self-care (01) ==
LOC: LAB 14:53
PROVIDERS: ATTEND Internal Medicine
DX: C18.9 Malignant neoplasm of colon, unspecified (principal); D64.9 Anemia, unspecified; K92.2 Gastrointestinal hemorrhage, unspecified
CPT/HCPCS: 36415; 82378; 85025

== ENCOUNTER 2022-02-21 14:45 | Outpatient (CLI) | payer MEDICARE, OTHER ==
[2022-02-21 15:21] LABS: FECAL OCCULT BLOOD (FIT) NEGATIVE (NEGATIVE)
== END 2022-02-21 14:46 | disposition home or self-care (01) ==
LOC: LAB 14:45
PROVIDERS: ATTEND Internal Medicine
DX: K92.2 Gastrointestinal hemorrhage, unspecified (principal)
CPT/HCPCS: 82274

== ENCOUNTER 2023-02-13 09:56 | Day surgery (SDC) | payer MEDICARE, OTHER ==
[2023-02-13] MEDS ORDERED: LACTATED RINGERS 1,000 ML IV ONE ×2 (10:33→12:13)
[2023-02-13] MEDS ORDERED: PROPOFOL 500 MG/50 ML 500 MG/50 ML VIAL ONE (10:59)
--- NOTE | 2023-02-13 11:19 | ANESTHESIA ---
Pre-Anesthesia VS, & Labs - Diagnosis history of colon cancer - Procedure colonoscopy Vital Signs: Temp Pulse Resp BP Pulse Ox O2 Flow Rate 36.4 C L 87 22 184/107 H 100 02/13/23 10:15 02/13/23 10:15 02/13/23 10:15 02/13/23 10:15 02/13/23 10:15 Height: 5 ft 8 in Weight (kg): 57 kg Body Mass Index: 19.1 BMI Classification: Normal - NPO >8 hours - Is Patient ?: No Home Medications and Allergies Losartan [Cozaar] 50 mg PO BID 12/12/21 amLODIPine [Norvasc] 5 mg PO DAILY 12/12/21 atenoloL [Tenormin] 25 mg PO BID 12/12/21 buPROPion HCL [Bupropion HCl Sr] 150 mg PO BID 12/12/21 Levothyroxine Sodium [Synthroid] 175 mcg PO QDAC 01/26/22 Allergies/Adverse Reactions: Allergies Allergy/AdvReac Type Severity Reaction Status Date / Time codeine AdvReac Nausea Verified 02/12/23 12:07 Anes History & Medical History - Anesthetic History Anesthesia Complications: reports: No previous complications - Medical History Cardiovascular: reports: Hypertension, Other (MVP) Pulmonary: reports: None Gastrointestinal: reports: None Urinary: reports: None Neuro: reports: None Musculoskeletal: reports: None Endocrine/Autoimmune: reports: HyPOthyroidism Blood Disorders: reports: None Skin: reports: None Smoking Status: Never smoker Psychosocial: reports: No issues indicated History of Cancer?: Yes (hx of colon cancer) - Surgical History General: reports: Appendectomy, Bowel surgery, Other Exam General: Alert, Oriented x3, Cooperative, No acute distress Dental: WNL Mouth Openin Fingerbreadth Neck Mobility: Normal Mallampati classification: I Thyromental Distance: 4-6 cm Mental/Cognitive Status: Alert/Oriented X3, Normal for patient Plan Anesthesia Type: General, Total IV Consent for Procedure(s) Verified and Reviewed: Yes Code Status: Attempt Resuscitation ASA classification: 2-Mild systemic disease Is this case an emergency?: No
[2023-02-13 12:35] VITALS: BP 108/52
--- NOTE | 2023-02-13 16:27 | ANESTHESIA POST OP EVALUATION ---
Anesthesia Post Eval - Post Anesthesia Eval Vitals: Last Vital Signs Temp 36.3 C L 02/13/23 12:13 Pulse 59 L 02/13/23 12:34 Resp 19 02/13/23 12:34 BP 108/52 L 02/13/23 12:34 Pulse Ox 100 02/13/23 12:34 O2 Flow Rate CV Function Including HR & BP: Stable Pain Control: Satisfactory Nausea & Vomiting: Negative Mental Status: Baseline Respiratory Status: Airway Patent Hydration Status: Satisfactory Anesthesia Complications: None
== END 2023-02-13 09:57 | disposition home or self-care (01) ==
LOC: SDS 09:56
PROVIDERS: ATTEND Surgery
PROC: 0DJD8ZZ Inspection of Lower Intestinal Tract, Via Natural or Artificial Opening Endoscopic (ICD-10-PCS; principal; 2023-02-13 11:00)
DX: Z08 Encounter for follow-up examination after completed treatment for malignant neoplasm (principal); Z85.038 Personal history of other malignant neoplasm of large intestine; I10 Essential (primary) hypertension; E03.9 Hypothyroidism, unspecified; K64.8 Other hemorrhoids; Z90.49 Acquired absence of other specified parts of digestive tract
CPT/HCPCS: 45378; J7120

== ENCOUNTER 2023-03-29 11:30 | Outpatient (CLI) | payer MEDICARE, OTHER ==
[2023-03-29 11:45] LABS: BASOPHILS # (AUTO) 0.1 10^3/uL (0.0-0.1); EOSINOPHILS % (AUTO) 0.7 %; HCT - HEMATOCRIT 46.9 % (37.0-47.0); HGB - HEMOGLOBIN 14.3 g/dL (12.0-16.0); LYMPHOCYTES # (AUTO) 1.1 10^3/uL (1.5-3.5); LYMPHOCYTES % (AUTO) 18.3 %; MEAN CORPUSCULAR HEMOGLOBIN 26.1 pg (27.0-31.0); MEAN CORPUSCULAR HGB CONC 30.5 g/dL (32.0-36.0); MEAN CORPUSCULAR VOLUME 85.7 fL (81.0-99.0); MEAN PLATELET VOLUME 10.5 fL (7.9-10.8); MONOCYTES # (AUTO) 0.5 10^3/uL (0.0-1.0); MONOCYTES % (AUTO) 7.8 %; NEUTROPHILS # (AUTO) 4.4 10^3/uL (1.5-6.6); PLT - PLATELET COUNT 242 10^3/uL (130-450); RED BLOOD COUNT 5.47 10^6/uL (4.20-5.40); RED CELL DISTRIBUTION WIDTH 14.2 % (12.0-15.0); WHITE BLOOD COUNT 6.1 x10^3/uL (4.8-10.8)
[2023-03-29 12:10] LABS: ALBUMIN 4.8 g/dL (3.2-5.5); ALBUMIN/GLOBULIN RATIO 1.5 (1.0-2.2); ALKALINE PHOSPHATASE 70 IU/L (42-121); ALT ALANINE AMINOTRANSFERASE 25 IU/L (10-60); AST ASPARTATE AMINOTRANSFERASE 28 IU/L (10-42); BILIRUBIN,TOTAL 0.9 mg/dL (0.2-1.0); BUN - BLOOD UREA NITROGEN 16 mg/dL (6-20); CALCIUM 10.8 mg/dL (8.5-10.3); CARBON DIOXIDE - CO2 26 mmol/L (21-32); CHLORIDE 104 mmol/L (101-111); CHOL/HDL RATIO 2.3 (<4.4); CHOLESTEROL 185 mg/dL; CREATININE 0.9 mg/dL (0.4-1.0); GFR - MDRD 61 (>89); GLUCOSE 110 mg/dL (70-100); HDL CHOLESTEROL 79 mg/dL; LDL CHOLESTEROL,CALCULATED 93 mg/dL; LDL/HDL RATIO 1.2 (<4.4); POTASSIUM 4.7 mmol/L (3.5-5.0); SODIUM 138 mmol/L (135-145); TOTAL PROTEIN 8.1 g/dL (6.7-8.2); TRIGLYCERIDES 67 mg/dL; VLDL CHOLESTEROL 13 mg/dL
[2023-04-02 12:09] LABS: ESTIMATED AVERAGE GLUCOSE 105 mg/dL (70-100); HEMOGLOBIN A1c% 5.3 % (4.27-6.07)
== END 2023-03-29 11:31 | disposition home or self-care (01) ==
LOC: LAB 11:30
PROVIDERS: ATTEND Internal Medicine
DX: Z00.00 Encounter for general adult medical examination without abnormal findings (principal); C18.9 Malignant neoplasm of colon, unspecified; C44.91 Basal cell carcinoma of skin, unspecified; E21.3 Hyperparathyroidism, unspecified; I10 Essential (primary) hypertension; E03.9 Hypothyroidism, unspecified; M81.0 Age-related osteoporosis without current pathological fracture; K91.2 Postsurgical malabsorption, not elsewhere classified; M25.619 Stiffness of unspecified shoulder, not elsewhere classified; Z79.899 Other long term (current) drug therapy
CPT/HCPCS: 36415; 80053; 80061; 82306; 83036; 83721; 84443; 85025

== ENCOUNTER 2023-04-04 08:07 | Outpatient (CLI) | payer MEDICARE, OTHER ==
[2023-04-04 08:43] LABS: BILIRUBIN,URINE NEGATIVE (NEGATIVE); GLUCOSE, URINE (UA) NEGATIVE (NEGATIVE); KETONES,URINE (UA) NEGATIVE (NEGATIVE); LEUKOCYTE ESTERASE, URINE NEGATIVE (NEGATIVE); NITRITE,URINE NEGATIVE (NEGATIVE); OCCULT BLOOD,URINE NEGATIVE (NEGATIVE); PH,URINE 6.5 PH (5.0-7.5); PROTEIN,URINE NEGATIVE (NEGATIVE); UROBILINOGEN,URINE 0.2 (NORMAL) E.U./dL (NORMAL)
[2023-04-04 08:53] LABS: CLARITY,URINE CLEAR (CLEAR)
== END 2023-04-04 08:08 | disposition home or self-care (01) ==
LOC: LAB 08:07
PROVIDERS: ATTEND Internal Medicine
DX: Z00.00 Encounter for general adult medical examination without abnormal findings (principal); C18.9 Malignant neoplasm of colon, unspecified; C44.91 Basal cell carcinoma of skin, unspecified; E83.52 Hypercalcemia; Z79.899 Other long term (current) drug therapy; E21.3 Hyperparathyroidism, unspecified; I10 Essential (primary) hypertension; E03.9 Hypothyroidism, unspecified; M81.0 Age-related osteoporosis without current pathological fracture; K91.2 Postsurgical malabsorption, not elsewhere classified; M25.619 Stiffness of unspecified shoulder, not elsewhere classified
CPT/HCPCS: 81001; 81003; 87086

== ENCOUNTER 2023-04-17 13:55 | Outpatient (CLI) | payer MEDICARE, OTHER ==
--- NOTE | 2023-04-18 09:52 | Mammography Report ---
BILATERAL DIGITAL SCREENING MAMMOGRAM 3D/2D: 04/17/2023 CLINICAL: Routine screening. Comparison is made to exams dated: 12/18/2021 mammogram, 04/28/2019 mammogram, 03/13/2018 mammogram, 01/25 mammogram, 02/11/2017 mammogram, and 01/15/2015 mammogram - [facility]. Both breasts are heterogeneously dense, which may obscure small masses (category c / 51-75% glandular tissue). There are benign post operative findings in the right breast. No significant masses, calcifications, or other findings are seen in either breast. There has been no significant interval change. IMPRESSION: BENIGN There is no mammographic evidence of malignancy. A 1 year screening mammogram is recommended. Based on the Tyrer Cuzick model (a risk assessment model) the patients lifetime risk is 4.4% and her 10 year risk is 0.0%. According to the ACR, ACS, and NCCN guidelines, an annual breast MRI exam juve g with mammogram is recommended if the patients lifetime risk is 20% or greater. This exam was interpreted at Station ID: [id number]. NOTE: For mammograms, a report in lay terms will be sent to the patient. Approximately 15% of breast malignancies will not be visualized mammographically. In the management of a palpable breast mass, a negative mammogram must not discourage biopsy of a clinically suspicious lesion. Electronically Signed By: Sandoval landry/roshan:04/17/2023 16:43:07 letter sent: No_Letter ACR BI-RADS Category 2: Benign Finding(s) 3342F PARENCHYMAL PATTERN: (D) - The breast(s) demonstrate(s) heterogeneously dense fibroglandular parbrigiday ma. BI-RADS CATEGORY: (2) - 2 Mammogram [id number] 1 year screening LATERALITY: (B)
== END 2023-04-17 13:56 | disposition home or self-care (01) ==
LOC: DI 13:55
PROVIDERS: ATTEND Internal Medicine
DX: Z12.31 Encounter for screening mammogram for malignant neoplasm of breast (principal)

== ENCOUNTER 2023-05-31 08:08 | Day surgery (SDC) | payer MEDICARE, OTHER ==
[~2023-05-31 08:08] MED LIST: ceFAZolin 2 GM VIAL ONE
[2023-05-31] MEDS ORDERED: LACTATED RINGERS 1,000 ML IV ONE ×2 (08:46→12:20)
--- NOTE | 2023-05-31 09:16 | ANESTHESIA ---
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 Vital Signs: Temp Pulse Resp BP Pulse Ox O2 Flow Rate 36.6 C 75 11 L 185/92 H 100 05/31/23 08:16 05/31/23 08:16 05/31/23 08:16 05/31/23 08:16 05/31/23 08:16 Height: 5 ft 9 in Weight (kg): 57 kg Body Mass Index: 18.5 BMI Classification: Normal - NPO >8 hours - Is Patient ?: No Home Medications and Allergies Home Medications: Ambulatory Orders Vit D3/Vit K2/Calc Frutoborate [Move Free [id number]] 1,000 intlu 05/31/23 Losartan [Cozaar] 50 mg PO BID 12/12/21 amLODIPine [Norvasc] 5 mg PO DAILY 12/12/21 atenoloL [Tenormin] 25 mg PO BID 12/12/21 buPROPion HCL [Bupropion HCl Sr] 150 mg PO BID 12/12/21 Levothyroxine Sodium [Synthroid] 175 mcg PO QDAC 01/26/22 Vit D3/Vit K2/Calc Frutoborate [Move Free [id number]] 1,000 intlu 05/31/23 Allergies/Adverse Reactions: Allergies Allergy/AdvReac Type Severity Reaction Status Date / Time codeine AdvReac Nausea Verified 02/12/23 12:07 Anes History & Medical History - Anesthetic History Anesthesia Complications: reports: No previous complications - Medical History Cardiovascular: reports: Hypertension, Murmur Pulmonary: reports: None Gastrointestinal: reports: Other Urinary: reports: None Neuro: reports: None Musculoskeletal: reports: None Endocrine/Autoimmune: reports: HyPOthyroidism Blood Disorders: reports: None Skin: reports: None Smoking Status: Never smoker History of Cancer?: Yes - Surgical History General: reports: Appendectomy, Bowel surgery, Colonoscopy, Other Exam General: Alert, Oriented x3 Dental: WNL Mouth Opening: Greater than 4 Fingerbreadths Neck Mobility: Normal Mallampati classification: I Thyromental Distance: less than 4 cm Respiratory: Lungs clear Cardiovascular: Regular rate (no murmur heard) Plan Anesthesia Type: General Consent for Procedure(s) Verified and Reviewed: Yes Code Status: Attempt Resuscitation ASA classification: 2-Mild systemic disease Is this case an emergency?: No
[2023-05-31] MEDS ORDERED: MORPHINE 2 MG/ML CARPUJECT IVP PRN (09:20)
[2023-05-31] MEDS ORDERED: ONDANSETRON 4 MG/2 ML VIAL IVP PRN ×2 (09:20→12:48)
[2023-05-31] MEDS ORDERED: ePHEDrine 50 MG/ML VIAL IVP PRN (09:20)
[2023-05-31] MEDS ORDERED: ATROPINE ABBOJECT 1 MG/10 ML SYRINGE IVP PRN (09:20)
[2023-05-31] MEDS ORDERED: METOCLOPRAMIDE 10 MG/2 ML VIAL IVP PRN (09:20)
[2023-05-31] MEDS ORDERED: HYDROmorphone 0.5 MG/0.5 ML SYRINGE IVP PRN (09:20)
[2023-05-31] MEDS ORDERED: fentaNYL 100 MCG/2 ML VIAL IVP PRN (09:20)
[2023-05-31] MEDS ORDERED: NALOXONE 0.4 MG/ML VIAL IVP PRN (09:20)
[2023-05-31] MEDS ORDERED: SCOPOLAMINE PATCH TOP ONE (09:28)
[2023-05-31] MEDS ORDERED: fentaNYL 100 MCG/2 ML VIAL ONE (09:40)
[2023-05-31] MEDS ORDERED: MIDAZOLAM 2 MG/2 ML VIAL ONE (09:40)
[2023-05-31] MEDS ORDERED: ONDANSETRON 4 MG/2 ML VIAL ONE (09:41)
[2023-05-31] MEDS ORDERED: DEXAMETHASONE 4 MG/ML VIAL ONE (09:41)
[2023-05-31] MEDS ORDERED: LIDOCAINE-PF 2% 10 ML AMP SUBQ ONE (09:41)
[2023-05-31] MEDS ORDERED: ROCURONIUM 50 MG/5 ML VIAL ONE ×2 (09:41→11:24)
[2023-05-31] MEDS ORDERED: PROPOFOL 200 MG/20 ML VIAL IVP ONE (09:41)
[2023-05-31] MEDS ORDERED: BUPIVACAINE 0.5%-EPI 1:200000 PF 30 ML VIAL ONE (09:45)
[2023-05-31] MEDS ORDERED: LACTATED RINGERS 1,000 ML IV SCH (10:00)
[2023-05-31] MEDS ORDERED: ePHEDrine 50 MG/ML VIAL IVP ONE (10:20)
[2023-05-31] MEDS ORDERED: SEVOFLURANE 250 ML LIQUID INH ONE (10:40)
[2023-05-31] MEDS ORDERED: BUPIVACAINE 0.5%-EPI 1:200000 PF 30 ML VIAL SUBQ ONE ×2 (10:41)
[2023-05-31] MEDS ORDERED: SUGAMMADEX 200 MG/2 ML VIAL IVP ONE (11:55)
--- NOTE | 2023-05-31 12:21 | OPERATIVE REPORT ---
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 Complications: None. - Other Other Information/Narrative: After verbal and written informed consent was obtained detailing the operation, the alternatives to the operation including no operation, risks of infection, bleeding requiring transfusion with its risks, nerve injury, and and after I met with the patient confirming the surgery, the patient was brought to the operative suite and placed supine on the operating table. Great care was taken to avoid pressure points to prevent pressure necrosis or nerve injury. Monitoring devices were applied along with TEDs and pneumatic compressive stockings (to prevent DVT). The patient received preoperative antibiotics for surgical prophylaxis. Danay Aden CRNA sedated and anesthetized the patient for the entire procedure. The patient was prepped and draped in usual sterile manner. A "time in" then confirmed that the patient was identified with 3 identifiers (name, date, and medical record number), the history and physical was in the chart, the signed consent confirming the procedure was in the chart, the patient was in the correct position, the aforementioned prophylactic measures were in place were given, we had the correct personnel and equipment to complete the procedure and that anesthesia, and the surgical team was given an opportunity to express any concerns. With the agreement of everyone in the room, we proceeded with the operation. A curvilinear incision was made in the patient's neck corresponding with a normal crease approximately 2 cm superior to the clavicular head. I did not use the incision that was previously made to resect her thyroid. This incision was taken down to the platysma muscle. The platysma was incised using Bovie electrocautery. Superior and inferior flaps were then raised using finger dissection. Small superficial veins were controlled using Bovie electrocautery. The fascia of the sternohyoid muscle was grasped bilaterally and opened at the midline using Bovie electrocautery. The dissection continued past the sternal thyroid muscle onto the trachea. Once the trachea was clearly seen Spring retractors, [employer]'s and Gelpi retractors were used to keep the muscle clear from the area of dissection without incising the muscle. The anterior surface of the trachea was cleared of adhesions using blunt dissection. There was significant adhesions in the neck due to the previous thyroidectomy. The adhesions were meticulously taken down using accommodation of sharp dissection with Metzenbaum scissors, blunt dissection and intermittent bipolar cautery. The previous operation placed the recuurent laryngeal nerve at risk and is cons idered reoperative neck surgery. The risk to the patient is higher and the operation was more difficult and time consuming due to the reoperative nature. The preoperative sestamibi study stated that the abnormal parathyroid was located in the right lower position. I extensively dissected this area but could not find anything that would correspond with an abnormal parathyroid. Dissection went into the posterior tracheal groove, around the carotid and inferiorly into the superior notch without revealing any obviously abnormal parathyroid tissue. A small more firm piece of tissue was sent for pathologic evaluation and this returned with a weight of less than 60 mg and was noted to be a lymph node. Only when extensive dissection did not reveal a abnormal parathyroid I directed my attention superiorly. At the level of the cricoid laterally on the right side a clearly abnormal parathyroid gland was identified and adherent tissue was dissected free from this tissue. Small feeding blood vessels were controlled using bipolar cautery as well as Bovie electrocautery and the specimen was completely excised. The area was then packed and the parathyroid gland was sent to pathology for frozen section evaluation. The pathologist called and stated that the tissue submitted was hypercellular parathyroid tissue weighing 425 mg (normal parathyroid weight is generally considered 20 to 40 mg and even 60 mg can be normal). Despite the localizing studies, I found the abnormal parathyroid gland quite superior to where I expected to find it (bringing into question as to whether this was an upper not a lower gland. With the object of this operation removed, the wound was examined for hemostasis and there was some persistent small bleeding emanating from the lateral aspect of the trachea where nerves could be a clearly identified. My concern was for injury to the recurrent laryngeal nerve and as such I did not cauterize the area but rather controlled it with the application of a small 2 x 4 cm piece of Surgicel. No drain was required. The fascia of the sternohyoid muscle was then approximated using a 3-0 Vicryl suture in a running fashion. The platysma was approximated using a 3-0 Vicryl suture in an interrupted simple fashion. Three 5-0 nylon sutures were used to approximate the skin in a mattress fashion. The skin was prepped with Mastisol and Steri-Strips were placed between the sutures. The plan would be to remove the sutures tomorrow morning prior to discharge. The patient will be watched overnight for hypocalcemia. At this point a "timeout" was performed that confirmed that all counts were correct, the procedure that was performed, the blood loss, the IV fluids administered, the patient's condition and any concerns of the operating team had. Dressings were then applied. Having tolerated the procedure well, the patient was extubated (and both Kezia and Danay Aden visualized the vocal cords which moved well towards midline) and taken to recovery room in good and stable condition. The plan is for extended recovery to ensure that the patient does not have significant hypocalcemia. CPT 63965 modifier 22 (modifier 22 due to reoperative surgery - scarring, adhesions, greater risk) This document was created in part using voice recognition technology. Because of the inherent limitations of the system, occasional same sounding word substitutions and grammatical errors do occur and persist despite proofreading. Please read this document for context.
[2023-05-31] MEDS ORDERED: HYDROcod/ACETAM 5/325 MG TABLET PO PRN (12:48)
[2023-05-31] MEDS: CALCIUM CARB (OYSTER SHELL) 500 MG TABLET PO SCH ×3 (13:30→21:06)
[2023-05-31] MEDS: CHOLECALCIFEROL 400 UNIT TABLET PO SCH ×2 (13:30→21:06)
--- NOTE | 2023-05-31 13:47 | ANESTHESIA POST OP EVALUATION ---
Anesthesia Post Eval - Post Anesthesia Eval Vitals: Last Vital Signs Temp 36.7 C 05/31/23 13:02 Pulse 74 05/31/23 13:02 Resp 14 05/31/23 13:02 BP 187/93 H 05/31/23 13:02 Pulse Ox 99 05/31/23 13:02 O2 Flow Rate CV Function Including HR & BP: Stable Pain Control: Satisfactory Nausea & Vomiting: Negative Mental Status: Baseline Respiratory Status: Airway Patent Hydration Status: Satisfactory Anesthesia Complications: None
[2023-06-01 05:37] LABS: ALBUMIN 3.7 g/dL (3.2-5.5); ALBUMIN/GLOBULIN RATIO 1.4 (1.0-2.2); ALKALINE PHOSPHATASE 58 IU/L (42-121); ALT ALANINE AMINOTRANSFERASE 21 IU/L (10-60); AST ASPARTATE AMINOTRANSFERASE 21 IU/L (10-42); BILIRUBIN,TOTAL 0.8 mg/dL (0.2-1.0); BUN - BLOOD UREA NITROGEN 17 mg/dL (6-20); CALCIUM 10.2 mg/dL (8.5-10.3); CARBON DIOXIDE - CO2 30 mmol/L (21-32); CHLORIDE 96 mmol/L (101-111); CREATININE 0.9 mg/dL (0.4-1.0); GFR - MDRD 61 (>89); GLUCOSE 99 mg/dL (70-100); IONIZED CALCIUM IF INDICATED NO; POTASSIUM 4.1 mmol/L (3.5-5.0); SODIUM 132 mmol/L (135-145); TOTAL PROTEIN 6.4 g/dL (6.7-8.2)
[2023-06-01 07:41] VITALS: BP 157/69
[2023-06-01] MEDS: CALCIUM CARB (OYSTER SHELL) 500 MG TABLET PO SCH (08:00)
[2023-06-01] MEDS: CHOLECALCIFEROL 400 UNIT TABLET PO SCH (08:01)
--- NOTE | 2023-06-01 12:28 | PROVIDER PROGRESS NOTE ---
Subjective - General Procedure Date: 05/31/23 Post Op Days: 1 Procedure Performed: RIGHT lower parathyroidectomy - Review of Systems Wound/Incisions: positive: Other (Steristrips removed. Stitches removed but RIGHT one may have some suture under skin. Benzoin and steristrips reapplied. No erythema, exudate, or ecchymosis.) General: positive: No symptoms HEENT: positive: Sore throat, Other (Voice is definitely strained today where it was not yesterday.) Cardiovascular: positive: No symptoms Gastrointestinal: positive: No symptoms Genitourinary: positive: No symptoms Musculoskeletal: positive: No symptoms Skin: positive: No symptoms Psychiatric: positive: No symptoms Objective - Patient Data Reviewed Vital Signs: Yes Vital Signs: Vital Signs x48h Temp Pulse Resp BP Pulse Ox 06/01/23 07:30 36.9 C 63 16 157/69 H 97 06/01/23 05:59 37.2 C 58 L 16 158/78 H 96 Weight: Weight 05/30/23 05/31/23 06/01/23 23:59 23:59 23:59 Weight (kg) 57 kg Intake & Output: Intake and Output Totals x24h 05/30/23 05/31/23 06/01/23 23:59 23:59 23:59 Intake Total 787 1490 Output Total 5 Balance 782 1490 - Lab Results Lab Results: 06/01/23 04:57 Other Lab Results: Lab Results x24hrs 06/01/23 05/31/23 Range/Units 04:57 18:08 Sodium 132 L (135-145) mmol/L Potassium 4.1 (3.5-5.0) mmol/L Chloride 96 L (101-111) mmol/L Carbon Dioxide 30 (21-32) mmol/L Anion Gap 6.0 (6-13) BUN 17 (6-20) mg/dL Creatinine 0.9 (0.4-1.0) mg/dL Estimated GFR (MDRD) 61 L (>89) Glucose 99 (70-100) mg/dL Calcium 10.2 9.7 (8.5-10.3) mg/dL Ionized Calcium NO Total Bilirubin 0.8 (0.2-1.0) mg/dL AST 21 (10-42) IU/L ALT 21 (10-60) IU/L Alkaline Phosphatase 58 (42-121) IU/L Total Protein 6.4 L (6.7-8.2) g/dL Albumin 3.7 (3.2-5.5) g/dL Globulin 2.7 (2.1-4.2) g/dL Albumin/Globulin Ratio 1.4 (1.0-2.2) - Current Medications Current Medications: Current Medications Generic Name Dose Route Start Last Admin Trade Name Ubaldoq PRN Reason Stop Dose Admin Calcium Carbonate/Glycine 1,000 mg 05/31/23 13:00 06/01/23 08:00 Calcium Carb (Oyster Shell) 500 Mg Tablet PO 1,000 mg QID CARI Administration Cholecalciferol 800 unit 05/31/23 12:59 06/01/23 08:01 Cholecalciferol 400 Unit Tablet PO 800 unit BID CARI Administration - Physical Exam Wound/Incisions: positive: Healing well General Appearance: positive: No acute distress Eyes Bilateral: positive: No lid inflammation, Conjunctivae nml, No scleral icterus ENT: positive: Dry mucous membranes Neck: positive: Trachea midline Respiratory: positive: Chest non-tender ABX Reporting Has patient been on IV antibiotics over the past 48 hours?: Yes Impression/Plan - Problem List Problem List: Okay to discharge home. Patient instructed to take 4 gm of calcium daily while taking Vitamin D to protest against hypocalcemia. In 6 weeks will revert to normal dose of calcium. Follow up with me in 10 days. Call with any questions or concerns. Warm fluids orally to help with voice.
== END 2023-06-01 13:00 | disposition home or self-care (01) ==
LOC: SDS 08:08 → MS2 12:47 → SDS 06-01 13:00
PROVIDERS: ATTEND Surgery
PROC: 0GTN0ZZ Resection of Right Inferior Parathyroid Gland, Open Approach (ICD-10-PCS; principal; 2023-05-31 09:15)
DX: D35.1 Benign neoplasm of parathyroid gland (principal); E21.0 Primary hyperparathyroidism; I10 Essential (primary) hypertension
CPT/HCPCS: 36415; 60500; 80053; 82310; A9270; J3490; J7120

== ENCOUNTER 2023-07-22 11:45 | Outpatient (CLI) | payer MEDICARE, OTHER ==
[2023-07-22 12:13] LABS: CALCIUM 9.9 mg/dL (8.5-10.3)
[2023-07-22 12:28] LABS: THYROID STIMULATING HORMONE 0.18 uIU/mL (0.34-5.60)
== END 2023-07-22 11:46 | disposition home or self-care (01) ==
LOC: LAB 11:45
PROVIDERS: ATTEND Internal Medicine
DX: E83.52 Hypercalcemia (principal); E03.9 Hypothyroidism, unspecified
CPT/HCPCS: 36415; 82310; 84443

== ENCOUNTER 2023-09-23 08:09 | Outpatient (CLI) | payer MEDICARE, OTHER | END 2023-09-23 08:10 | disposition home or self-care (01) | LOC: LAB 08:09 | PROVIDERS: ATTEND Internal Medicine | DX: E03.9 Hypothyroidism, unspecified (principal); J38.01 Paralysis of vocal cords and larynx, unilateral | CPT/HCPCS: 36415; 84443 ==

== ENCOUNTER 2024-04-16 09:32 | Outpatient (CLI) | payer MEDICARE, OTHER ==
[2024-04-16 09:43] LABS: BASOPHILS # (AUTO) 0.1 10^3/uL (0.0-0.1); BASOPHILS % (AUTO) 1.5 %; EOSINOPHILS # (AUTO) 0.1 10^3/uL (0.0-0.7); HCT - HEMATOCRIT 44.5 % (37.0-47.0); HGB - HEMOGLOBIN 13.4 g/dL (12.0-16.0); LYMPHOCYTES # (AUTO) 1.4 10^3/uL (1.5-3.5); LYMPHOCYTES % (AUTO) 23.1 %; MEAN CORPUSCULAR HEMOGLOBIN 26.4 pg (27.0-31.0); MEAN CORPUSCULAR HGB CONC 30.1 g/dL (32.0-36.0); MEAN CORPUSCULAR VOLUME 87.6 fL (81.0-99.0); MEAN PLATELET VOLUME 10.4 fL (7.9-10.8); MONOCYTES # (AUTO) 0.6 10^3/uL (0.0-1.0); MONOCYTES % (AUTO) 10.3 %; NEUTROPHILS # (AUTO) 3.7 10^3/uL (1.5-6.6); NEUTROPHILS % (AUTO) 62.9 %; PLT - PLATELET COUNT 273 10^3/uL (130-450); RED BLOOD COUNT 5.08 10^6/uL (4.20-5.40); RED CELL DISTRIBUTION WIDTH 14.2 % (12.0-15.0); WHITE BLOOD COUNT 5.9 x10^3/uL (4.8-10.8)
[2024-04-16 09:56] LABS: ALBUMIN 4.5 g/dL (3.2-5.5); ALBUMIN/GLOBULIN RATIO 1.8 (1.0-2.2); ALKALINE PHOSPHATASE 48 IU/L (42-121); ALT ALANINE AMINOTRANSFERASE 14 IU/L (10-60); AST ASPARTATE AMINOTRANSFERASE 16 IU/L (10-42); BILIRUBIN,TOTAL 0.6 mg/dL (0.2-1.0); BUN - BLOOD UREA NITROGEN 17 mg/dL (6-20); CALCIUM 9.4 mg/dL (8.5-10.3); CARBON DIOXIDE - CO2 27 mmol/L (21-32); CHLORIDE 102 mmol/L (101-111); CHOL/HDL RATIO 2.4 (<4.4); CHOLESTEROL 191 mg/dL; CREATININE 1.2 mg/dL (0.6-1.3); GFR - MDRD 44 (>89); GLUCOSE 95 mg/dL (74-104); HDL CHOLESTEROL 78 mg/dL; LDL CHOLESTEROL,CALCULATED 96 mg/dL; LDL/HDL RATIO 1.2 (<4.4); SODIUM 136 mmol/L (135-145); TRIGLYCERIDES 84 mg/dL (48-352); VLDL CHOLESTEROL 17 mg/dL
[2024-04-16 10:10] LABS: THYROID STIMULATING HORMONE 0.76 uIU/mL (0.34-5.60)
[2024-04-16 11:01] LABS: ESTIMATED AVERAGE GLUCOSE 103 mg/dL (70-100); HEMOGLOBIN A1c% 5.2 % (4.27-6.07)
== END 2024-04-16 09:33 | disposition home or self-care (01) ==
LOC: LAB 09:32
PROVIDERS: ATTEND Internal Medicine
DX: Z00.00 Encounter for general adult medical examination without abnormal findings (principal); C44.91 Basal cell carcinoma of skin, unspecified; I10 Essential (primary) hypertension; E83.52 Hypercalcemia; R73.01 Impaired fasting glucose; C18.9 Malignant neoplasm of colon, unspecified; Z86.010 Personal history of colon polyps; M81.0 Age-related osteoporosis without current pathological fracture; Z79.899 Other long term (current) drug therapy
CPT/HCPCS: 36415; 80053; 80061; 83036; 83721; 84443; 85025

== ENCOUNTER 2024-04-27 13:57 | Outpatient (CLI) | payer MEDICARE, OTHER ==
--- NOTE | 2024-04-28 10:23 | Mammography Report ---
BILATERAL DIGITAL SCREENING MAMMOGRAM 3D/2D: 04/27/2024 CLINICAL: Routine screening. Comparison is made to exams dated: 04/17/2023 mammogram, 12/18/2021 mammogram, 04/28/2019 mammogram, 02/23 mammogram, 02/11/2017 mammogram, and 01/26/2016 mammogram - [facility]. Both breasts are heterogeneously dense, which may obscure small masses (category c / 51-75% glandular tissue). There are benign vascular calcifications in the left breast. There also are benign post operative fi ndings in the right breast. No significant masses, calcifications, or other findings are seen in either breast. There has been no significant interval change. IMPRESSION: BENIGN There is no mammographic evidence of malignancy. A 1 year screening mammogram is recommended. Based on the Tyrer Cuzick model (a risk assessment model) the patient's lifetime risk is 4.0% and her 10 year risk is 0.0%. According to the ACR, ACS, and NCCN guidelines, an annual breast MRI exam juve g with mammogram is recommended if the patient's lifetime risk is 20% or greater. This exam was interpreted at Station ID: [id number]. NOTE: For mammograms, a report in lay terms will be sent to the patient. Approximately 15% of breast malignancies will not be visualized mammographically. In the management of a palpable breast mass, a negative mammogram must not discourage biopsy of a clinically suspicious lesion. Electronically Signed By: Catalina solis/roshan:04/27/2024 16:21:31 letter sent: No_Letter ACR BI-RADS Category 2: Benign Finding(s) 3342F PARENCHYMAL PATTERN: (D) - The breast(s) demonstrate(s) heterogeneously dense fibroglandular karon herron. BI-RADS CATEGORY: (2) - 2 RECOMMENDATION: (ANNUAL) - Recommend routine annual screening mammography. [id number] 1 year screening LATERALITY: (B)
== END 2024-04-27 13:58 | disposition home or self-care (01) ==
LOC: DI 13:57
PROVIDERS: ATTEND Internal Medicine
DX: Z12.31 Encounter for screening mammogram for malignant neoplasm of breast (principal); R92.333 Mammographic heterogeneous density, bilateral breasts

== ENCOUNTER 2024-05-11 14:44 | Outpatient (CLI) | payer MEDICARE, OTHER ==
--- NOTE | 2024-05-11 16:40 | DEXA Report ---
PROCEDURE: Dexa Spine and/or Hip INDICATIONS: OSTEOPOROSIS TECHNIQUE: Dual energy x-ray absorptiometry (DXA) was performed on a [employer] System. Regions measur ed are the AP Spine, femoral neck, and if needed forearm. COMPARISON: None FINDINGS: Lumbar Spine: Bone Mineral Density: 0.81 g/cm/cm,T score: -3.1. Left Femoral Neck: Bone Mineral Density: 0.63 g/cm/cm, T score: -2.9. Left Hip: Bone Mineral Density: 0.63 g/cm/cm,T score: -3. Left Forearm: Bone Mineral Density: g/cm/cm, T score: . (T score greater or equal to -1.0: NORMAL) (T score from -1.1 to -2.4: OSTEOPENIA) (T score less than or equal to -2.5 to: OSTEOPOROSIS) Impression: By WHO criteria, this patient has osteoporosis. High fracture risk. Patients with diagnosis of osteoporosis or osteopenia should have regular bone mineral density assess ment. For those eligible for Medicare, routine testing is allowed once every 2 years. Testing frequ ency can be increased for patients who have rapidly progressing disease or for those who are receivin g medical therapy to restore bone mass. Reviewed by: Lobo Marsh MD on 05/11/2024 4:39 PM PDT Approved by: Lobo Marsh MD on 05/11/2024 4:39 PM PDT Station ID: [id number]
== END 2024-05-11 14:45 | disposition home or self-care (01) ==
LOC: DI 14:44
PROVIDERS: ATTEND Internal Medicine
DX: M81.0 Age-related osteoporosis without current pathological fracture (principal)